=== PATIENT | female | born 1940 | race Caucasian/White ===

== ENCOUNTER 2017-02-08 11:23 | Inpatient (IN) ==
[~2017-02-08 11:23] MED LIST: *HR* FentaNYL (PF) 100 MCG/2 ML VIAL ONE; *HR* Propofol 200 MG/20 ML VIAL IVP ONE; *HR* Succinylcholine 200 MG/10 ML VIAL IVP ONE; Dexamethasone 4 MG/ML VIAL ONE; Lidocaine -MPF 2% 2 ML VIAL ONE; Ondansetron 4 MG/2 ML VIAL ONE
--- NOTE | 2017-02-08 11:54 | Anesthesia Evaluation PreOp ---
Date of Encounter: 02/08/17 Time of Encounter: 11:51 - Past History Planned Operation: PLIF L3-4 Cardiac History: HTN, Hyperlipidemia Pulmonary History: Asthma, COPD (3L O2 nc), TEO Dx [place] History: Other (Depression, Lumbar stenosis, Chronic Back Pain, Diabetic Polyneuropathy) Other Medical History: Renal (CRD Stage IV), Thyroid (Hypothyroid), GERD Anesthesia History: No Prior Anesthetic Complications, Past Anesthesia ( Thyroidectomy, Knee scope, GB, Dx Lap, PLIF) : No Alcohol Use: none Drug use: none Medications and Allergies ALPRAZolam [Xanax 1 MG Tablet] 1 mg PO HS 07/25/16 [History] Albuterol Neb [Proventil Neb] 2.5 mg IH Q6H PRN 07/25/16 [History] Albuterol Sulfate [Proair Hfa] 2 puff IH Q4-6H PRN 07/25/16 [History] Aspirin 81 mg PO DAILY 07/25/16 [History] Atorvastatin Calcium [Lipitor] 20 mg PO HS 07/25/16 [History] Cholecalciferol (Vitamin D3) [Vitamin D3] 5,000 unit PO DAILY 07/25/16 [History] Escitalopram [Lexapro] 20 mg PO DAILY 07/25/16 [History] Furosemide [Lasix] 20 mg PO DAILY PRN 07/25/16 [History] Gabapentin [Neurontin] 600 mg PO TID 07/25/16 [History] HYDROcodone/Acet 7.5/325 mg [[place] 7.5-325 mg] 1 tab PO Q6H PRN 07/25/16 [ History] Levothyroxine [Synthroid] 125 mcg PO SUMOTUWETHFR 07/25/16 [History] Lisinopril [Zestril] 10 mg PO DAILY 07/25/16 [History] Pantoprazole Sodium [Protonix] 40 mg PO DAILY 07/25/16 [History] Potassium Chloride [K-Tab ER] 20 meq PO DAILY 07/25/16 [History] Loperamide [Imodium] 2 mg PO PRN PRN 07/31/16 [History] Fluconazole [Diflucan] 100 mg PO DAILY #7 tablet 08/01/16 [Rx] Phos-NaK [Neutra-Phos] 1 each PO BID PRN 14 Days 08/01/16 [Rx] Allergies acetaminophen [From Percocet] Allergy (Verified 07/25/16 18:34) See Comments bupropion [From Wellbutrin] Allergy (Verified 07/25/16 18:34) See Comments Diclofenac [From Voltaren] Allergy (Verified 07/25/16 18:34) See Comments diphenhydramine [From Benadryl] Allergy (Verified 07/25/16 18:34) Anxiety meclizine Allergy (Verified 07/25/16 18:34) See Comments NSAIDS (Non-Steroidal Anti-Inflamma Allergy (Verified 07/25/16 18:34) See Comments Oxycodone [From Percocet] Allergy (Verified 07/25/16 18:34) See Comments venlafaxine [From Effexor] Allergy (Verified 07/25/16 18:34) See Comments - Meds/Allergy Pre-op Review Medications Reviewed: Yes Allergies Reviewed: Yes Beta Blockers on Current Med List: No Anesthesia Results - Labs Laboratory Tests 01/24/17 01/24/17 01/24/17 08:58 09:00 09:00 WBC 9.6 Hgb 11.5 Hct 37.0 Plt Count 231 INR Sodium 142 Potassium 4.3 Chloride 103 Carbon Dioxide 32 H BUN 22 H Creatinine 1.21 H Hemoglobin A1c 5.2 02/01/17 12:00 WBC Hgb Hct Plt Count INR 1.0 Sodium Potassium Chloride Carbon Dioxide BUN Creatinine Hemoglobin A1c - Imaging EKG: image reviewed (SR) Anesthesia Exam Height: 5'6'' Weight: 260# NPO (# of Hours): > 8 Hrs Pain Scale: 0 Pain Scale Used: Numeric (1 - 10) - HEENT Pupil (Motor): Pupils equal, EOMI Mallampati: II Teeth: Edentulous Denture Type: Upper: Complete, Lower: Complete Oral Opening: Greater than 3 - [place] LOC: Oriented [place] Motor: Normal RUE, Normal LUE, Normal RLE, Normal LLE, Normal Face [place] Sensory: Normal: RUE, LUE, RLE, LLE, Face - Cardiac Rhythm: Regular Murmur: None JVD: No Carotid Bruit: No - Pulmonary Breath Sounds: bilateral Clear Respiratory Effort: Symmetrical Anesthesia Assess/Plan ASA Score: 3 Anesthetic Plan: General Autologous Blood: Yes Monitoring Plan: Standard Monitors Recovery Plan: PACU
[2017-02-08] MEDS ORDERED: CeFAZolin Pre 2,000 MG/100 ML 2,000 MG/100 ML BAG IVPB ONE (11:57)
[2017-02-08] MEDS ORDERED: Ringers Solution, Lactated 1,000 ML IVC SCH ×2 (12:00→18:35)
[2017-02-08] MEDS ORDERED: Albuterol 2.5 MG/3 ML NEBULIZER IH ONE (12:40)
[2017-02-08] MEDS ORDERED: Albuterol 2.5 MG/3 ML NEBULIZER ONE (12:41)
--- NOTE | 2017-02-08 13:02 | History & Physical Report ---
Date of Encounter: 02/08/17 Time of Encounter: 13:01 24 Hour HP Update - Instructions Instructions: If the History and Physical is less than 30 days old and was completed prior to A.M. admission and or procedure and has NOT been updated on calendar day of procedure please complete this update prior to performing procedure. - Update Patient reports changes in Medical Condition: No Changes in examination, assessment, or condition: No Changes in Medication: No Preop tests/diagnostics Reviewed: Yes Pre-Op MRSA Screen: Negative Surgery Remains Indicated: Yes Consent for Planned Operative Procedure(s) Verified: Yes - Pre-Operative Checklist Preoperative Checklist Indicated: No Prophylactic Antibiotic Ordered: Yes Home Medications Include Beta Laura: No Beta Laura Taken Today (Day of Surgery): No Beta Laura Taken Yesterday (Day Prior to Surgery): No Is VTE Prophylaxis Indicated?: Yes
[2017-02-08] MEDS ORDERED: *HR* Remifentanil 2 MG VIAL IVP ONE (13:30)
--- NOTE | 2017-02-08 17:08 | Orthopedic Operative Note ---
Date of procedure: 02/08/17 Pre-op diagnosis: Spondylolisthesis, lumbar stenosis, lumbar radiculopathy, s/p lumbar fusion Post-op diagnosis: same Operation/Findings: Exploration of fusion, removal of hardware, posterior lumbar interbody fusion L3 -4: The patient successfully underwent general endotracheal anesthesia. The patient was given antibiotics prior to the start of the procedure. Compression boots and stockings were used for deep vein thrombosis prophylaxis. A Pisano catheter was placed. Leads for neuro monitoring were placed on the upper and lower extremities. This included the cranium. The neuro monitoring personnel confirmed there were satisfactory readings prior to the start of the procedure. The patient was turned prone on the Benedict table. The back was prepped and draped in the usual sterile fashion. An incision was was marked and centered over the involved L3-L5 levels in the mid line. The incision was deepened through the lumbar fascia. Bovie cautery and Rose elevators were used to reflect the paraspinal musculature at the lateral extent of the L3-L5 transverse processes of the involved L3-L5 levels. Celeste clamps were placed over the L4 and L5 spinous processes. An intraoperative lateral fluoroscopy graft was obtained. A conversation was held between the surgeon and radiologist and both confirmed we had the correct operative levels. We then exposed the hardware at L4-5 which had been previously placed on the left side. We explored the fusion mass at L4-5. There appeared to be an arthrodesis without evidence of pseudarthrosis. We removed pedicle screws at L4 and L5 respectively. We then placed pedicle screws in standard fashion with the aid of fluoroscopy and anatomic landmarks at L3 and L4 on the left.. Briefly a starter awl was used. A gearshift was subsequently used to enter the chief pilot hole via a transpedicular route into the vertebral body. The chief pilot hole was tapped with an undersized instrument, and subsequently two 6.5 x 40 mm pedicle screws were placed on the left side at the indicated L3 and L4 levels. The screws were tested with the aid of the neurologic monitoring staff via pedicle screw stimulation. All reading suggested there was no significant cortical wall breech. The screws were also evaluated fluoro- graphically and appeared to be in satisfactory position. We then turned our attention to the decompression portion of the procedure. We removed the supraspinous and interspinous ligaments and subsequently the insertion of the ligamentum flavum on the undersurface of the proximal L3 lamina was dislodged with a curette. We then removed the ligamentum flavum as well as undercut the L3-L4 facets at this level to decompress the lateral recesses. We also performed a L3 laminectomy. After the decompression which was over and above that which was required to place the interbody graft, the foramen and traversing roots at this L3-L4 level were found to be free and patent. We also took part of the medial facet in order to aid in the decompression. We then protected the neural elements including the thecal sac and traversing nerve root on the left with a dural retractor. We made an annulotomy into the L3-L4 disc space and then removed disc material using Pituitary instruments. We trialed various size grafts after the endplates were prepared for graft insertion. A 10 x 26 enter body graft fit well within the L3-L4 disc space. We obtained some bone from the left posterior superior iliac spine through us a separate incision and combined with this with the bone which we had saved from the laminectomy portion of the procedure. This autograft bone was first placed in the anterior portion of the L3-L4 disc space and additional bone was placed within the interbody graft spacer. We then placed the interbody graft spacer obliquely across the disc space towards the midline while protecting the neural elements with a root retractor. When the graft was found to be in satisfactory position the kennel hand was removed. We then copiously irrigated the wound. We then decorticated the L3 and L4 transverse processes as well as the facet joints of the involved L3-L4 levels to aid in the posterolateral fusion. We placed autograft bone in the lateral gutters over these regions. We then placed rods within the screw heads of the involved L3 and L4 levels and first locked the distal screws and then subsequently locked the proximal screws so as to improve and reduce the spondylolisthesis previously seen. We then closed the wound in layers with 1 Vicryl for the fascia, 2-0 Vicryl. Subcutaneous tissue, and Dermabond was used for skin closure. Sterile dressings were placed over the wound. The patient was turned supine on a hospital bed and extubated. All sponge instruments and needle counts were correct at the end of the procedure. The patient tolerated the procedure well without complications. Anesthesia: GETA Surgeon: Gautam Dominguez Jr Estimated blood loss (cc): 500 Condition: stable Disposition: PACU
[2017-02-08] MEDS: *HR* HYDROmorphone (PF) 1 MG/ML SYRINGE IVP PRN ×4 (17:22→17:47)
[2017-02-08] MEDS ORDERED: *HR* HYDROmorphone (PF) 1 MG/ML SYRINGE IVP PRN (17:39)
[2017-02-08] MEDS ORDERED: Acetaminophen IV 1,000 MG/100 ML INFUS..BTL IVPB ONE (18:00)
--- NOTE | 2017-02-08 18:34 | Anesthesia Evaluation Post Op ---
Date of Encounter: 02/08/17 Time of Encounter: 18:34 - Vital Signs Vital Signs: Vital Signs/O2 Sat, Most Current Temp Pulse Resp BP Pulse Ox 97.2 F L 83 18 112/72 91 02/08/17 18:32 02/08/17 18:32 02/08/17 18:32 02/08/17 18:32 02/08/17 18:32 - Lungs Lungs: Clear Ascult./Percussion - Airway Airway: Non-obstructed - Cardiovascular Regular Rate - Mental Status Mental Status: Alert & Oriented, Answers Appropriately - Pain Pain Scale: 7 Pain Scale used: Numeric (1 - 10) - Nausea Vomiting Nausea Vomiting: Not Present - Hydration Hydration: NPO, Pisano catheter - Discharge PostOp Status: Transfer Patient to floor
[2017-02-08] MEDS ORDERED: Naloxone 0.4 MG/ML INJ IVP PRN (18:35)
[2017-02-08] MEDS ORDERED: Albuterol 2.5 MG/3 ML NEBULIZER IH PRN (18:35)
[2017-02-08] MEDS ORDERED: Ondansetron 4 MG/2 ML VIAL IVP PRN (18:35)
[2017-02-08] MEDS ORDERED: Furosemide 20 MG TABLET PO PRN (18:35)
[2017-02-08] MEDS: *HR* HYDROcodone/Acet 5/325 mg TABLET PO PRN (20:19)
[2017-02-09] MEDS: ceFAZolin 2,000 MG in D5% in Water 100 ML IVPB SCH ×2 (00:33→07:47)
[2017-02-09] MEDS: *HR* Morphine 2 MG/ML SYRINGE IVP PRN ×4 (00:38→21:29)
[2017-02-09] MEDS: *HR* HYDROcodone/Acet 5/325 mg TABLET PO PRN ×5 (04:30→22:36)
[2017-02-09 05:52] LABS: Basophils % 0.1 %; Eosinophils % 0.1 %; Hematocrit 30.9 % (35.3-44.9); Hemoglobin 9.9 g/dL (11.5-15.4); Immature Granulocytes % 0.4 % (0-4); Lymphocytes # 1.9 K/mcL (0.6-4.6); Lymphocytes % 13.5 %; Mean Corpuscular Hemoglobin 30.7 pg (28.0-33.3); Mean Platelet Volume 10.2 fL (9.4-12.4); Monocytes # 1.2 K/mcL (0.0-1.3); Monocytes % 8.4 %; Neutrophils # 10.8 K/mcL (1.6-8.9); Platelet Count 218 K/mcL (140-400); Red Blood Count 3.22 M/mcL (3.82-4.97); Segmented Neutrophils % 77.5 %
[2017-02-09 06:05] LABS: BUN/Creatinine Ratio 26 (6-26); Blood Urea Nitrogen 25 mg/dL (7-20); Calcium 8.7 mg/dL (8.6-10.8); Carbon Dioxide 31 mEq/L (19-29); Chloride 104 mEq/L (98-109); Glucose 94 mg/dL (70-99); Osmolality,Calculated 294 (280-300); Potassium 4.6 mEq/L (3.5-4.5); Sodium 140 mEq/L (136-145); eGFR For African Americans > 60 (> 60); eGFR For Non-African Americans 57 (> 60)
[2017-02-09] MEDS: Cholecalciferol (D-3) 1,000 UNIT TABLET PO SCH (07:47)
[2017-02-09] MEDS: *HR* Glimepiride 2 MG TABLET PO SCH (07:47)
--- NOTE | 2017-02-09 10:20 | Discharge Summary ---
Date of Encounter: 02/09/17 Time of Encounter: 08:00 - Discharge Diagnosis (1) Spondylisthesis Priority: Primary Status: Chronic Qualifiers: Spinal region: unspecified Qualified Code(s): M43.10 - Spondylolisthesis, site unspecified (2) Lumbar stenosis Priority: Primary Status: Chronic (3) Lumbar radiculopathy Priority: Primary Status: Chronic (4) Status post lumbar spinal fusion Priority: Primary Status: Chronic - Discharge Medications Prescriptions: HYDROcodone/Acet 5/325 mg [[place]oyd 5-325 mg] 1 tab PO Q6H PRN #60 tablet PRN Reason: Mild Pain Home Medications: Albuterol Neb [Proventil Neb] 2.5 mg IH Q6H PRN 07/25/16 [History] Albuterol Sulfate [Proair Hfa] 2 puff IH Q4-6H PRN 07/25/16 [History] Cholecalciferol (Vitamin D3) [Vitamin D3] 5,000 unit PO DAILY 07/25/16 [History] Escitalopram [Lexapro] 20 mg PO DAILY 07/25/16 [History] Furosemide [Lasix] 20 mg PO DAILY PRN 07/25/16 [History] Levothyroxine [Synthroid] 125 mcg PO MOTUWETHFRSA 07/25/16 [History] Lisinopril [Zestril] 10 mg PO DAILY 07/25/16 [History] Pantoprazole Sodium [Protonix] 40 mg PO DAILY 07/25/16 [History] Buspirone HCl [Buspar] 7.5 mg PO BID 02/08/17 [History] Glimepiride [Amaryl] 1 mg PO DAILY 02/08/17 [History] HYDROcodone/Acet 5/325 mg [[place] 5-325 mg] 1 tab PO Q6H PRN 02/08/17 [History] HYDROcodone/Acet 5/325 mg [[place] 5-325 mg] 1 tab PO Q6H PRN #60 tablet 02/09/17 [Rx] Allergies/Adverse Reactions: Allergies bupropion [From Wellbutrin] Allergy (Verified 02/08/17 12:58) See Comments PATIENT UNSURE Diclofenac [From Voltaren] Allergy (Verified 02/08/17 12:58) See Comments PATIENT UNSURE meclizine Allergy (Verified 02/08/17 12:58) Dizziness NSAIDS (Non-Steroidal Anti-Inflamma Allergy (Verified 02/08/17 12:58) See Comments LOW KIDNEY FUNCTION Oxycodone [From Percocet] Allergy (Verified 02/08/17 12:58) See Comments MENTAL STATUS CHANGES venlafaxine [From Effexor] Allergy (Verified 02/08/17 12:58) Confusion acetaminophen [From Percocet] Adverse Reaction (Verified 02/08/17 12:58) See Comments MENTAL STATUS CHANGES diphenhydramine [From Benadryl] Adverse Reaction (Verified 02/08/17 12:58) Anxiety Labs on day of discharge: Labs from last 24 hours 02/09/17 02/09/17 02/08/17 05:17 05:17 17:14 WBC 13.9 H RBC 3.22 L Hgb 9.9 L Hct 30.9 L MCV 96.0 MCH 30.7 MCHC 32.0 RDW 15.0 H Plt Count 218 MPV 10.2 Immature Gran % 0.4 Seg Neutrophils % 77.5 Lymphocytes % 13.5 Monocytes % 8.4 Eosinophils % 0.1 Basophils % 0.1 Neutrophils # 10.8 H Lymphocytes # 1.9 Monocytes # 1.2 Eosinophils # 0.0 Basophils # 0.0 Sodium 140 Potassium 4.6 H Chloride 104 Carbon Dioxide 31 H BUN 25 H Creatinine 0.95 Est GFR ( Amer) > 60 Est GFR (Non-Af Amer) 57 L BUN/Creatinine Ratio 26 Glucose 94 POC Glucose 104 H Calculated Osmolality 294 Calcium 8.7 02/08/17 12:23 WBC RBC Hgb Hct MCV MCH MCHC RDW Plt Count MPV Immature Gran % Seg Neutrophils % Lymphocytes % Monocytes % Eosinophils % Basophils % Neutrophils # Lymphocytes # Monocytes # Eosinophils # Basophils # Sodium Potassium Chloride Carbon Dioxide BUN Creatinine Est GFR ( Amer) Est GFR (Non-Af Amer) BUN/Creatinine Ratio Glucose POC Glucose 79 Calculated Osmolality Calcium - Impressions ITS Impressions Lumbar Spine X-Ray 02/08/17 00:00 IMPRESSION: A single postoperative image is obtained. Posterior fusion is noted, likely at L3-4. An intervertebral disc spacer is in place. The lower lumbar spine and lumbosacral junction is obscured. D/ / 02/08/2017 20:31:33 Didier Orlando MD / lilliam Interpreting Provider: Didier Orlando MD Date of admission: 02/08/17 18:29 Primary care physician: Oswaldo Chen DO Consults: 02/08/17 18:35 Consult to Occupational Therapy [CONS] Routine Comment: Evaluate, develop and implement POC Reason for Consult: Postoperative Consult to Physical Therapy [CONS] Routine Comment: Evaluate, develop and implement POC Reason for Consult: Postoperative Consult to Spine Navigator [CONS] [CONS] Routine Discharging clinician: Gautam Dominguez Jr Anticipated date of discharge: 02/09/17 - Patient Status Disposition: Home, Self-Care Condition: Good Functional capacity at discharge: independent ambulation Overall status at discharge: patient is progressing back to baseline - Discharge Instructions Follow Up With: Oswaldo Chen DO [Primary Care Provider] - Ann Gottlieb PAC [Physician Technician Inventory Specialist] - 02/21/17 8:30 am - Diet and Activity Activity: as per physical therapy Diet: advance to your usual diet - Hospital Course Hospital course: Ms. Vela is a 76 year old female status post exploration of fusion, removal of hardware, PLIF L3-4 on 02/08/17. - Time Spent with Patient Total time spent providing and/or coordinating discharge services: - VTE Documentation of Mechanical Device: Intermittent pneumatic compression device
--- NOTE | 2017-02-09 12:16 | Spine Progress Note ---
Date of Encounter: 02/09/17 Time of Encounter: 12:15 Subjective Principal diagnosis: Spondylolisthesis, status post lumbar fusion Interval history: The patient is without complaints. Afebrile vital signs are stable. Incision is clean dry and intact. Neurovascularly intact with regard to bilateral lower extremities. Fires all upper and lower extremity motor groups. Assessment : stable. Plan mobilize ,continue analgesics, discharge planning. Objective Vital signs: Vital Signs Temp Pulse Resp BP Pulse Ox 02/09/17 11:07 98.0 F 82 18 96/60 94 02/09/17 09:30 87 18 92/61 93 02/09/17 06:36 98.0 F 87 18 92/61 93 02/09/17 04:04 98.5 F 58 02/09/17 04:00 98.5 F 88 21 119/65 95 02/08/17 23:05 99.1 F 77 18 144/78 95 02/08/17 22:00 98.9 F 79 16 106/67 93 02/08/17 21:00 98.9 F 77 16 129/75 94 02/08/17 20:00 98.7 F 82 16 123/73 93 02/08/17 19:30 98.6 F 83 14 124/59 93 02/08/17 19:00 98.0 F 83 15 112/64 94 02/08/17 18:32 97.2 F L 83 18 112/72 91 02/08/17 18:22 86 16 110/68 92 02/08/17 18:12 97.8 F 86 18 119/64 92 02/08/17 18:02 88 18 119/78 92 02/08/17 17:52 89 18 125/87 94 02/08/17 17:42 97.6 F 86 18 105/72 93 02/08/17 17:32 86 18 138/58 95 02/08/17 17:22 94 18 139/60 94 02/08/17 17:12 97.7 F 100 16 126/98 100 02/08/17 12:29 98.4 F 75 16 100/62 92 Intake and Output 02/08/17 02/09/17 02/09/17 23:59 07:59 15:59 Intake Total 100 / 100 100 / 100 Output Total 820 / 820 1150 / 1150 Balance -720 / -720 -1050 / -1050 Intake: IV Fluids 100 / 100 100 / 100 Ofirmev 1,000 mg/100 ml 1 100 / 100 ,000 mg In 100 ml @ 400 mls/hr IVPB ONCE ONE Rx#: [id number] Ancef 2,000 MG In 100 / 100 Dextrose 5% 100 ML @ 200 mls/hr IVPB Q8HR [facility] Rx#: [id number] Output: Urine 350 / 350 Urethral (Pisano) 350 / 350 Estimated Blood Loss 500 / 500 Urine Amount (Catheter) 320 / 320 Catheter 800 / 800 Other: Blood Glucose* 104 - Labs CBC & BMP: 02/09/17 05:17 02/09/17 05:17 Labs: Abnormal lab results WBC 13.9 K/mcL (4.3-11.1) H 02/09/17 05:17 RBC 3.22 M/mcL (3.82-4.97) L 02/09/17 05:17 Hgb 9.9 g/dL (11.5-15.4) L 02/09/17 05:17 Hct 30.9 % (35.3-44.9) L 02/09/17 05:17 RDW 15.0 % (11.5-14.5) H 02/09/17 05:17 Neutrophils # 10.8 K/mcL (1.6-8.9) H 02/09/17 05:17 Potassium 4.6 mEq/L (3.5-4.5) H 02/09/17 05:17 Carbon Dioxide 31 mEq/L (19-29) H 02/09/17 05:17 BUN 25 mg/dL (7-20) H 02/09/17 05:17 Est GFR (Non-Af Amer) 57 (> 60) L 02/09/17 05:17 POC Glucose 104 (58-89) H 02/08/17 17:14 Consult Discharge Plan - Plan Referrals: Ann Gottlieb PAC [Physician Candle Molder Machine] - 02/21/17 8:30 am Oswaldo Chen DO [Primary Care Provider] - Prescriptions: HYDROcodone/Acet 5/325 mg [[place] 5-325 mg] 1 tab PO Q6H PRN #60 tablet PRN Reason: Mild Pain
[2017-02-10] MEDS: *HR* Morphine 2 MG/ML SYRINGE IVP PRN (01:17)
[2017-02-10] MEDS: *HR* HYDROcodone/Acet 5/325 mg TABLET PO PRN ×5 (03:08→19:58)
[2017-02-10] MEDS: Ondansetron ODT 4 MG TAB.RAPDIS SL PRN ×2 (08:20→15:40)
[2017-02-10] MEDS: *HR* Glimepiride 2 MG TABLET PO SCH (09:20)
[2017-02-10] MEDS: Cholecalciferol (D-3) 1,000 UNIT TABLET PO SCH (09:20)
--- NOTE | 2017-02-10 15:21 | Spine Progress Note ---
Date of Encounter: 02/10/17 Time of Encounter: 15:21 Subjective Principal diagnosis: Spondylolisthesis, status post lumbar fusion Interval history: The patient is without complaints. Afebrile vital signs are stable. Incision is clean dry and intact. Neurovascularly intact with regard to bilateral lower extremities. Fires all upper and lower extremity motor groups. Assessment : stable. Plan mobilize ,continue analgesics, discharge planning. Currently plan is home with home health. Objective Vital signs: Vital Signs Temp Pulse Resp BP Pulse Ox 02/10/17 10:59 98.1 F 95 18 135/84 96 02/10/17 07:27 98.5 F 83 18 123/72 94 02/10/17 03:45 98.8 F 83 17 121/73 95 02/09/17 23:15 98.8 F 84 18 112/76 92 02/09/17 22:34 98.7 F 97 16 112/68 90 02/09/17 21:34 93 02/09/17 17:51 98.9 F 82 18 121/75 93 Intake and Output 02/09/17 02/10/17 02/10/17 23:59 07:59 15:59 Intake Total 200 / 200 Output Total 440 / 440 250 / 250 Balance -1 / -1 -240 / -240 -250 / -250 Intake: IV Fluids 100 / 100 Oral 100 / 100 Output: Urine 440 / 440 250 / 250 Other: Stool Size Smear Stool Color Brown # Voids 1 # Bowel Movements 1 Weight 118.5 kg Patient Weight 02/10/17 23:59 Weight 118.5 kg - Labs CBC & BMP: 02/09/17 05:17 02/09/17 05:17 Labs: Abnormal lab results WBC 13.9 K/mcL (4.3-11.1) H 02/09/17 05:17 RBC 3.22 M/mcL (3.82-4.97) L 02/09/17 05:17 Hgb 9.9 g/dL (11.5-15.4) L 02/09/17 05:17 Hct 30.9 % (35.3-44.9) L 02/09/17 05:17 RDW 15.0 % (11.5-14.5) H 02/09/17 05:17 Neutrophils # 10.8 K/mcL (1.6-8.9) H 02/09/17 05:17 Potassium 4.6 mEq/L (3.5-4.5) H 02/09/17 05:17 Carbon Dioxide 31 mEq/L (19-29) H 02/09/17 05:17 BUN 25 mg/dL (7-20) H 02/09/17 05:17 Est GFR (Non-Af Amer) 57 (> 60) L 02/09/17 05:17 POC Glucose 104 (58-89) H 02/08/17 17:14 Consult Discharge Plan - Plan Additional Instructions: Discharge Instructions: Lumbar Please call [facility] ([phone]), your Primary Care Physician, or report to the ER if you have any of the following symptoms: Fever greater that 101.5, increased pain/redness/drainage/odor for your incision site or any other concerning symptoms. ACTIVITY * May Shower * No Tub Baths * No lifting greater than 10 pounds * No Smoking * No Swimming * No off Ground Activities (Running, Climbing, Ladders, Horseback Riding) * No Driving * Wear Back Brace when up walking if lumbar fusion done MEDICATIONS: Upon discharge resume your home medications. Take all the medications as prescribed. Take a stool softener if taking narcotic pain medications. Stool softeners are only effective if you drink enough fluids. Drink 6-8 glass of water or fluids a day, unless this is not allowed for another health problem. Despite using stool softeners, if you haven't had a bowel movement in 3 days, please switch to a gentle laxative. Gentle laxatives are sold over the counter. You should have a bowel movement within 24 hours, if not call the office. You will be discharged from the hospital with a prescription for pain medication. You are encouraged to decrease the use of narcotic pain medication as tolerated. Should you require a refill, please call the office. It is best to call 48-72 hours in advance of needing a prescription refill so you don't run out of medication. WOUND CARE: Remove Dressing Tomorrow. Leave incision open to air. Pat dry when you get out of the shower. FOLLOW-UP: Please follow up with your surgeon in the orthopedic clinic in 2 weeks from the day of surgery. References: [employer] ([email or web address]) Referrals: Ann Gottlieb, PAC [Physician Technical Services Librarian] - 02/21/17 8:30 am Oswaldo Chen DO [Primary Care Provider] - Prescriptions: HYDROcodone/Acet 5/325 mg [[place] 5-325 mg] 1 tab PO Q6H PRN #60 tablet PRN Reason: Mild Pain
[2017-02-11] MEDS: *HR* HYDROcodone/Acet 5/325 mg TABLET PO PRN ×4 (00:04→15:37)
[2017-02-11] MEDS: *HR* Morphine 2 MG/ML SYRINGE IVP PRN ×2 (01:12→06:30)
[2017-02-11] MEDS: Cholecalciferol (D-3) 1,000 UNIT TABLET PO SCH (09:37)
[2017-02-11] MEDS: *HR* Glimepiride 2 MG TABLET PO SCH (09:38)
[2017-02-11 15:23] VITALS: BP 161/82
--- NOTE | 2017-02-11 16:50 | Orthopedics Progress Note ---
Date of Encounter: 02/11/17 Time of Encounter: 16:47 - Assessment and Plan (1) Spondylisthesis Current Visit: Yes Status: Chronic Qualifiers: Spinal region: unspecified Qualified Code(s): M43.10 - Spondylolisthesis, site unspecified (2) Status post lumbar spinal fusion Current Visit: Yes Status: Chronic Postoperative day #3, stable Discharge today Subjective Principal diagnosis: Spondylolisthesis, status post lumbar fusion Interval history: The patient is comfortable with pain mainly controlled Back: Wound is clean dry and intact Bilateral calves soft nontender Neurovascular intact distally Lumbar x-rays reviewed showing good position of hardware Objective Vital signs: Vital Signs Temp Pulse Resp BP Pulse Ox 02/11/17 15:21 98.4 F 88 16 161/82 93 02/11/17 11:15 98.2 F 77 16 123/72 95 02/11/17 06:25 98.5 F 92 16 128/76 96 02/11/17 04:00 98.3 F 97 15 121/82 96 02/11/17 00:29 98.2 F 88 18 116/73 94 02/10/17 19:57 98.5 F 91 16 115/70 94 Intake and Output 02/11/17 02/11/17 02/11/17 07:59 15:59 23:59 Intake Total 360 / 360 Output Total 300 / 300 Balance 60 / 60 Intake: Oral 360 / 360 Output: Urine 300 / 300 Other: Meal Lunch Percent of Meal Consumed 50% Blood Glucose* 65 98 Incision: clean and dry - Labs CBC & BMP: 02/09/17 05:17 02/09/17 05:17 Labs: Abnormal lab results WBC 13.9 K/mcL (4.3-11.1) H 02/09/17 05:17 RBC 3.22 M/mcL (3.82-4.97) L 02/09/17 05:17 Hgb 9.9 g/dL (11.5-15.4) L 02/09/17 05:17 Hct 30.9 % (35.3-44.9) L 02/09/17 05:17 RDW 15.0 % (11.5-14.5) H 02/09/17 05:17 Neutrophils # 10.8 K/mcL (1.6-8.9) H 06/01/17 05:17 Potassium 4.6 mEq/L (3.5-4.5) H 02/09/17 05:17 Carbon Dioxide 31 mEq/L (19-29) H 02/09/17 05:17 BUN 25 mg/dL (7-20) H 02/09/17 05:17 Est GFR (Non-Af Amer) 57 (> 60) L 02/09/17 05:17 - VTE Documentation of Mechanical Device: Intermittent pneumatic compression device Consult Discharge Plan - Plan Additional Instructions: Discharge Instructions: Lumbar Please call [facility] ([phone]), your Primary Care Physician, or report to the ER if you have any of the following symptoms: Fever greater that 101.5, increased pain/redness/drainage/odor for your incision site or any other concerning symptoms. ACTIVITY * May Shower * No Tub Baths * No lifting greater than 10 pounds * No Smoking * No Swimming * No off Ground Activities (Running, Climbing, Ladders, Horseback Riding) * No Driving * Wear Back Brace when up walking if lumbar fusion done MEDICATIONS: Upon discharge resume your home medications. Take all the medications as prescribed. Take a stool softener if taking narcotic pain medications. Stool softeners are only effective if you drink enough fluids. Drink 6-8 glass of water or fluids a day, unless this is not allowed for another health problem. Despite using stool softeners, if you haven't had a bowel movement in 3 days, please switch to a gentle laxative. Gentle laxatives are sold over the counter. You should have a bowel movement within 24 hours, if not call the office. You will be discharged from the hospital with a prescription for pain medication. You are encouraged to decrease the use of narcotic pain medication as tolerated. Should you require a refill, please call the office. It is best to call 48-72 hours in advance of needing a prescription refill so you don't run out of medication. WOUND CARE: Remove Dressing Tomorrow. Leave incision open to air. Pat dry when you get out of the shower. FOLLOW-UP: Please follow up with your surgeon in the orthopedic clinic in 2 weeks from the day of surgery. References: [employer] ([email or web address]) Referrals: Ann Gottlieb PAC [Physician Biometric Fingerprinting Technician] - 02/21/17 8:30 am Oswaldo Chen DO [Primary Care Provider] - Prescriptions: HYDROcodone/Acet 5/325 mg [[place] 5-325 mg] 1 tab PO Q6H PRN #60 tablet PRN Reason: Mild Pain
== END 2017-02-11 17:15 | disposition home or self-care (01) | DRG 460 ==
LOC: SAMDAY 11:23 → 3NENU 18:29
PROVIDERS: ADMIT Orthopaedic Surgery Orthopaedic Surgery of the Spine; ATTEND Orthopaedic Surgery Orthopaedic Surgery of the Spine

== ENCOUNTER 2017-12-25 19:38 | Inpatient (IN) ==
[2017-12-25 20:16] LABS: Amphetamine Screen,Urine Negative ng/mL (Cutoff=1000); Barbiturate Screen,Urine Negative ng/mL (Cutoff=200); Benzodiazepines Screen,Urine Negative ng/mL (Cutoff=200); Cannabinoid Screen,Urine Negative ng/mL (Cutoff = 50); Cocaine Screen,Urine Negative ng/mL (Cutoff= 300); Opiate Screen,Urine Negative ng/mL (Cutoff=300); Phencyclidine Screen,Urine Negative ng/mL (Cutoff=25)
[2017-12-25 20:26] LABS: Basophils # 0.1 K/mcL (0.0-0.2); Basophils % 0.4 %; Eosinophils # 0.1 K/mcL (0.0-0.6); Eosinophils % 0.7 %; Hematocrit 39.3 % (35.3-44.9); Immature Granulocytes % 0.6 % (0-4); Lymphocytes # 2.1 K/mcL (0.6-4.6); Lymphocytes % 14.7 %; Mean Corpuscular HGB Conc 30.5 g/dL (31.6-35.5); Mean Corpuscular Hemoglobin 29.7 pg (28.0-33.3); Mean Corpuscular Volume 97.3 fL (83.0-100.0); Mean Platelet Volume 9.9 fL (9.4-12.4); Monocytes # 1.1 K/mcL (0.0-1.3); Monocytes % 7.9 %; Neutrophils # 10.8 K/mcL (1.6-8.9); Platelet Count 286 K/mcL (140-400); Red Blood Count 4.04 M/mcL (3.82-4.97); Red Cell Distribution Width 14.9 % (11.5-14.5); Segmented Neutrophils % 75.7 %
[2017-12-25 20:27] LABS: Bilirubin,Urine Negative (Negative); Blood,Urine Small (Negative); Clarity,Urine Slightly Cloudy (Clear); Color,Urine Yellow (Yellow); Glucose,Urine (UA) Normal (Normal); Ketones,Urine Negative (Negative); Leukocyte Esterase,Urine Large (Negative); Nitrite,Urine Negative (Negative); PH,Urine 5.5 pH Units (5.0-8.0); Protein,Urine 30 mg/dL (Neg-Trace); Urobilinogen,Urine Normal (Normal)
[2017-12-25 20:32] LABS: RBC,Urine 0-3 per hpf (0-3)
[2017-12-25 20:32] LABS: Prothrombin Time 10.4 Seconds (9.4-12.1)
[2017-12-25 20:33] LABS: Bacteria,Urine Many per hpf (None-Few); Squamous Epithelial Cell,Urine Many per lpf (None-Few)
[2017-12-25 20:35] LABS: Activated Partial Thrombo Time 28.7 Seconds (26.0-36.0)
[2017-12-25 20:50] LABS: Alanine Aminotransferase 12 Units/L (7-52); Albumin 4.3 g/dL (3.5-5.7); Albumin/Globulin Ratio 1.7 (1.1-2.2); Alkaline Phosphatase 120 Units/L (34-104); Aspartate Amino Transferase 15 Units/L (13-39); BUN/Creatinine Ratio 21 (6-26); Bilirubin,Direct 0.1 mg/dL (0.0-0.2); Bilirubin,Indirect 0.2 mg/dL (0.0-1.2); Bilirubin,Total 0.3 mg/dL (0.3-1.0); Blood Urea Nitrogen 32 mg/dL (8-23); Calcium 8.3 mg/dL (8.6-10.3); Carbon Dioxide 28 mEq/L (23-29); Chloride 105 mEq/L (98-107); Globulin 2.5 g/dL (2.4-3.5); Glucose 122 mg/dL (70-105); Osmolality,Calculated 294 (280-300); Potassium 5.3 mEq/L (3.5-5.1); Sodium 138 mEq/L (136-145); Total Protein 6.8 g/dL (6.4-8.9); Troponin I < 0.03 ng/mL (< 0.04); eGFR For African Americans 40 (> 60); eGFR For Non-African Americans 33 (> 60)
[2017-12-25 21:02] LABS: ABG Base Excess -1 mEq/L (-2 to 3); ABG HCO3 28 mEq/L (21-27); ABG Oxygen Saturation 94 % (95-98); ABG PCO2 71 mmHg (35-45); ABG PH 7.21 pH Units (7.32-7.45); ABG PO2 89 mmHg (85-104); ABG TCO2 31 mEq/L (20-26)
[2017-12-25] MEDS ORDERED: Levofloxacin 500 MG/100 ML 500 MG/100 ML BAG IVPB ONE (21:45)
[2017-12-25] MEDS ORDERED: 0.9 % Sodium Chloride 1,000 ML IVC ONE (21:46)
--- NOTE | 2017-12-25 22:17 | Emergency Department Note ---
Disposition Clinical Impression: Acute exacerbation of chronic obstructive airways disease, CO2 retention, Renal insufficiency, Obstructive sleep apnea Disposition: Admitted As Inpatient Condition: Fair Time of Disposition: 22:20 General Adult HPI - General Chief complaint: ED Shortness of Breath/Dyspnea Stated complaint: Confusion, SOB Time Seen by Provider: 12/25/17 19:43 Source: patient, EMS Mode of arrival: EMS Limitations: no limitations Nursing Notes Reviewed: Yes Vital Signs Reviewed: Yes - History of Present Illness HPI Narrative: 77-year-old female presents emergency room for altered mental status and shortness of breath. Patient has a history of obstructive sleep apnea, COPD, polysubstance abuse, respiratory failure. She presents today for confusion associated with shortness of breath. Patient was brought in via EMS. Patient can tell me her name and where she is at. She contaminated year. She denies any pain anywhere. States she does feels extremely tired. She was out visiting a family member today at the hospital and was not wearing her oxygen. She does wear chronic home O2. She does again have a history of COPD. She was not wearing her oxygen all day today and became very sleepy and tired. She denies chest pain. No recent fevers. Pain Scale: 0 - Related Data Home Medications Medication Instructions Recorded Confirmed Albuterol Neb [Proventil Neb] 2.5 mg IH Q6H PRN 07/25/16 12/25/17 Cholecalciferol (Vitamin D3) 5,000 unit PO DAILY 07/25/16 12/25/17 [Vitamin D3] Escitalopram [Lexapro] 20 mg PO DAILY 07/25/16 12/25/17 Furosemide [Lasix] 20 mg PO DAILY PRN 07/25/16 12/25/17 Levothyroxine [Synthroid] 125 mcg PO MOTUWETHFRSA 07/25/16 12/25/17 Lisinopril [Zestril] 10 mg PO DAILY 07/25/16 12/25/17 Pantoprazole Sodium [Protonix] 40 mg PO DAILY 07/25/16 12/25/17 Buspirone HCl [Buspar] 7.5 mg PO BID 02/08/17 12/25/17 Glimepiride [Amaryl] 1 mg PO BID 02/08/17 12/25/17 Gabapentin [Neurontin] 600 mg PO TID 02/13/17 12/25/17 ARIPiprazole [Abilify] 2 mg PO DAILY 12/25/17 12/25/17 Albuterol Sulfate [Proair Hfa] 1 - 2 puff IH Q4-6H PRN 12/25/17 12/25/17 Alendronate Sodium [Fosamax] 70 mg PO QWEEK 12/25/17 12/25/17 Atorvastatin Calcium [Lipitor] 20 mg PO HS 12/25/17 12/25/17 Calcitriol [Rocaltrol] 0.25 mcg PO MOWEFR 12/25/17 12/25/17 Cyclobenzaprine HCl 2.5 - 5 mg PO HS PRN 12/25/17 12/25/17 Oxygen 2 l IH AD 12/25/17 12/25/17 traZODone [TraZODone] 50 mg PO HS 12/25/17 12/25/17 Allergies Allergy/AdvReac Type Severity Reaction Status Date / Time bupropion [From Wellbutrin] Allergy See Verified 05/07/17 14:16 Comments Diclofenac [From Voltaren] Allergy See Verified 05/07/17 14:16 Comments meclizine Allergy Dizziness Verified 05/07/17 14:16 NSAIDS (Non-Steroidal Allergy See Verified 05/07/17 14:16 Anti-Inflamma Comments Oxycodone [From Percocet] Allergy See Verified 05/07/17 14:16 Comments venlafaxine [From Effexor] Allergy Confusion Verified 05/07/17 14:16 diphenhydramine AdvReac Anxiety Verified 05/07/17 14:16 [From Benadryl] All systems ED: reviewed and negative except as stated. Constitutional: Reports: weakness. Denies: fever, chills Eyes: Reports: as per HPI ENT ED: Reports: as per HPI Cardiovascular: Denies: chest pain, palpitations Respiratory: Reports: as per HPI Gastrointestinal: Reports: as per HPI Genitourinary: Reports: as per HPI Musculoskeletal: Reports: as per HPI Integumentary: Reports: as per HPI Neurological: Reports: as per HPI, headache, weakness Psychiatric: Reports: as per HPI Endocrine: Reports: as per HPI Hematological/Lymphatic: Reports: as per HPI Allergic/Immunologic: Reports: as per HPI Past Medical History - Past Medical History Medical history: Reports: arthritis, asthma, COPD, diabetes, GERD, hyperlipidemia, hypertension, liver disease, osteoporosis, renal disease, thyroid disease, other Surgical history: Reports: appendectomy, cholecystectomy, knee replacement, orthopedic, other, thyroidectomy, other, vascular surgery, LE vascular intervention, arthroscopy Psychiatric history: Reports: anxiety, depression MATERIAL INSPECTOR history: Reports: no MATERIAL INSPECTOR history - Social History Smoking Status: Former smoker Smokeless Tobacco Status: No Alcohol use: Reports: none Drug use: Reports: none Physical Exam Patient is very somnolent. Answers questions but falls back asleep quickly - General General appearance: alert, in no apparent distress - Head Head exam: atraumatic, normocephalic - Eye Eye exam: Present: normal appearance - ENT ENT exam: normal exam - Neck Neck exam: Present: normal inspection - Chest Chest inspection: Present: normal inspection - Respiratory Respiratory exam: Present: normal lung sounds bilaterally - Cardiovascular Cardiovascular exam: Present: regular rate, normal rhythm - Abdominal Exam Abdominal exam: Present: soft, Non-Tender - Extremities Exam Extremities exam: Present: normal inspection - Expanded Lower Extremity Exam Hip/Pelvis exam: Present: normal inspection - Neurological Exam Neurological exam: Present: oriented X3. Absent: motor sensory deficit - Psychiatric Psychiatric exam: Present: other (Sleepy) - Skin Skin exam: Present: warm, dry, intact Course Vital Signs Temperature 98.8 F 12/25/17 19:45 Pulse Rate 77 12/25/17 19:45 Respiratory Rate 16 12/25/17 19:45 Blood Pressure 125/90 12/25/17 19:45 O2 Sat by Pulse Oximetry 96 12/25/17 19:45 Temperature 98.8 F 12/25/17 19:45 Pulse Rate 80 12/25/17 22:25 Respiratory Rate 13 12/26/17 00:01 Blood Pressure 112/87 12/26/17 00:01 O2 Sat by Pulse Oximetry 96 12/25/17 23:35 Oxygen Delivery Oxygen Delivery Bipap Medical Decision Making - MDM Narrative Medical decision making narrative: Patient was thought to be in CO2 retention. Noted her BiPAP after we got her ABG results back. ABG showed a gases 7.2 with a CO2 and this 71 range. Workup here otherwise was unremarkable including a chest x-ray, CT of the head and screening lab work as well as a drug urine screen. Her EKG did not show any significant findings. I suspect this is all secondary to acute CO2 retention. This could be from her not wearing her oxygen all day versus overdose of her Neurontin. Spoke with the hospitalist. They will admit the patient if her ABG is improving. They are limited on beds at this time. We are doing a third ABG at this point. She is doing much better as far as her mentation. She is able to talk through the mask and carry a conversation. She is alert she is oriented. She is in no respiratory distress at this time. Medical care time of 60 minutes spent in medical management of acute CO2 retention - Medical Records Medical records reviewed: Yes I reviewed the patient's medical records. - Lab Data Lab results reviewed: Yes I reviewed the patient's lab results. Result diagrams: 12/25/17 20:14 12/25/17 20:14 Lab Results 12/25/17 12/25/17 12/25/17 Range/Units 19:48 20:01 20:14 WBC 14.3 H (4.3-11.1) K/mcL RBC 4.04 (3.82-4.97) M/mcL Hgb 12.0 (11.5-15.4) g/dL Hct 39.3 (35.3-44.9) % MCV 97.3 (83.0-100.0) fL MCH 29.7 (28.0-33.3) pg MCHC 30.5 L (31.6-35.5) g/dL RDW 14.9 H (11.5-14.5) % Plt Count 286 (140-400) K/mcL MPV 9.9 (9.4-12.4) fL Immature Gran % 0.6 (0-4) % Seg Neutrophils % 75.7 % Lymphocytes % 14.7 % Monocytes % 7.9 % Eosinophils % 0.7 % Basophils % 0.4 % Neutrophils # 10.8 H (1.6-8.9) K/mcL Lymphocytes # 2.1 (0.6-4.6) K/mcL Monocytes # 1.1 (0.0-1.3) K/mcL Eosinophils # 0.1 (0.0-0.6) K/mcL Basophils # 0.1 (0.0-0.2) K/mcL PT (9.4-12.1) Seconds INR APTT (26.0-36.0) Seconds Sample Site ABG pH (7.32-7.45) pH Units ABG pCO2 (35-45) mmHg ABG pO2 (85-104) mmHg ABG HCO3 (21-27) mEq/L ABG Total CO2 (20-26) mEq/L ABG O2 Saturation (95-98) % ABG Base Excess (-2 to 3) mEq/L Tristin Test Carboxyhemoglobin (0-5) % O2 Delivery Device Inspired O2 (1-15=lpm ak84-158=%) PEEP cm H2O Pressure Support cm H2O Sodium (136-145) mEq/L Potassium (3.5-5.1) mEq/L Chloride (98-107) mEq/L Carbon Dioxide (23-29) mEq/L BUN (8-23) mg/dL Creatinine (0.60-1.20) mg/dL Est GFR ( Amer) (> 60) Est GFR (Non-Af Amer) (> 60) BUN/Creatinine Ratio (6-26) Glucose (70-105) mg/dL Calculated Osmolality (280-300) Lactic Acid (0.5-2.2) mmol/L Calcium (8.6-10.3) mg/dL Total Bilirubin (0.3-1.0) mg/dL Direct Bilirubin (0.0-0.2) mg/dL Indirect Bilirubin (0.0-1.2) mg/dL AST (13-39) Units/L ALT (7-52) Units/L Alkaline Phosphatase (34-104) Units/L Troponin I (< 0.04) ng/mL B-Natriuretic Peptide (Less than 100) pg/mL Serum Total Protein (6.4-8.9) g/dL Albumin (3.5-5.7) g/dL Globulin (2.4-3.5) g/dL Albumin/Globulin Ratio (1.1-2.2) Urine Color Yellow (Yellow) Urine Clarity Slightly Cloudy A (Clear) Urine pH 5.5 (5.0-8.0) pH Units Ur Specific [place] 1.020 (1.010-1.025) Urine Protein 30 H (Neg-Trace) mg/dL Urine Glucose (UA) Normal (Normal) mg/dL Urine Ketones Negative (Negative) mg/dL Urine Blood Small H (Negative) Urine Nitrite Negative (Negative) Urine Bilirubin Negative (Negative) Urine Urobilinogen Normal (Normal) mg/dL Ur Leukocyte Esterase Large H (Negative) Urine Microscopic RBC 0-3 (0-3) per hpf Urine Microscopic WBC 5-15 H (0-3) per hpf Ur Squamous Epith Cells Many H (None-Few) per lpf Urine Bacteria Many H (None-Few) per hpf Ur Culture Indicated? NO. (NO) Urine Opiates Screen Negative (Uduwvm=602) ng/mL Ur Barbiturates Screen Negative (Dssohd=245) ng/mL Ur Phencyclidine Scrn Negative (Cutoff=25) ng/mL Ur Amphetamines Screen Negative (Xirozk=9651) ng/mL U Benzodiazepines Scrn Negative (Rehdxv=869) ng/mL Urine Cocaine Screen Negative (Cutoff= 300) ng/mL U Marijuana (THC) Screen Negative (Cutoff = 50) ng/mL 12/25/17 12/25/17 12/25/17 Range/Units 20:14 20:14 20:14 WBC (4.3-11.1) K/mcL RBC (3.82-4.97) M/mcL Hgb (11.5-15.4) g/dL Hct (35.3-44.9) % MCV (83.0-100.0) fL MCH (28.0-33.3) pg MCHC (31.6-35.5) g/dL RDW (11.5-14.5) % Plt Count (140-400) K/mcL MPV (9.4-12.4) fL Immature Gran % (0-4) % Seg Neutrophils % % Lymphocytes % % Monocytes % % Eosinophils % % Basophils % % Neutrophils # (1.6-8.9) K/mcL Lymphocytes # (0.6-4.6) K/mcL Monocytes # (0.0-1.3) K/mcL Eosinophils # (0.0-0.6) K/mcL Basophils # (0.0-0.2) K/mcL PT 10.4 (9.4-12.1) Seconds INR 1.0 APTT 28.7 (26.0-36.0) Seconds Sample Site ABG pH (7.32-7.45) pH Units ABG pCO2 (35-45) mmHg ABG pO2 (85-104) mmHg ABG HCO3 (21-27) mEq/L ABG Total CO2 (20-26) mEq/L ABG O2 Saturation (95-98) % ABG Base Excess (-2 to 3) mEq/L Tristin Test Carboxyhemoglobin (0-5) % O2 Delivery Device Inspired O2 (1-15=lpm qc00-173=%) PEEP cm H2O Pressure Support cm H2O Sodium 138 (136-145) mEq/L Potassium 5.3 H (3.5-5.1) mEq/L Chloride 105 (98-107) mEq/L Carbon Dioxide 28 (23-29) mEq/L BUN 32 H (8-23) mg/dL Creatinine 1.54 H (0.60-1.20) mg/dL Est GFR ( Amer) 40 L (> 60) Est GFR (Non-Af Amer) 33 L (> 60) BUN/Creatinine Ratio 21 (6-26) Glucose 122 H (70-105) mg/dL Calculated Osmolality 294 (280-300) Lactic Acid 0.6 (0.5-2.2) mmol/L Calcium 8.3 L (8.6-10.3) mg/dL Total Bilirubin 0.3 (0.3-1.0) mg/dL Direct Bilirubin 0.1 (0.0-0.2) mg/dL Indirect Bilirubin 0.2 (0.0-1.2) mg/dL AST 15 (13-39) Units/L ALT 12 (7-52) Units/L Alkaline Phosphatase 120 H (34-104) Units/L Troponin I < 0.03 (< 0.04) ng/mL B-Natriuretic Peptide (Less than 100) pg/mL Serum Total Protein 6.8 (6.4-8.9) g/dL Albumin 4.3 (3.5-5.7) g/dL Globulin 2.5 (2.4-3.5) g/dL Albumin/Globulin Ratio 1.7 (1.1-2.2) Urine Color (Yellow) Urine Clarity (Clear) Urine pH (5.0-8.0) pH Units Ur Specific [place] (1.010-1.025) Urine Protein (Neg-Trace) mg/dL Urine Glucose (UA) (Normal) mg/dL Urine Ketones (Negative) mg/dL Urine Blood (Negative) Urine Nitrite (Negative) Urine Bilirubin (Negative) Urine Urobilinogen (Normal) mg/dL Ur Leukocyte Esterase (Negative) Urine Microscopic RBC (0-3) per hpf Urine Microscopic WBC (0-3) per hpf Ur Squamous Epith Cells (None-Few) per lpf Urine Bacteria (None-Few) per hpf Ur Culture Indicated? (NO) Urine Opiates Screen (Mxjhqj=426) ng/mL Ur Barbiturates Screen (Fabfav=548) ng/mL Ur Phencyclidine Scrn (Cutoff=25) ng/mL Ur Amphetamines Screen (Jtoiaw=1799) ng/mL U Benzodiazepines Scrn (Lilrct=271) ng/mL Urine Cocaine Screen (Cutoff= 300) ng/mL U Marijuana (THC) Screen (Cutoff = 50) ng/mL 12/25/17 12/25/17 12/25/17 Range/Units 20:14 20:14 20:53 WBC (4.3-11.1) K/mcL RBC (3.82-4.97) M/mcL Hgb (11.5-15.4) g/dL Hct (35.3-44.9) % MCV (83.0-100.0) fL MCH (28.0-33.3) pg MCHC (31.6-35.5) g/dL RDW (11.5-14.5) % Plt Count (140-400) K/mcL MPV (9.4-12.4) fL Immature Gran % (0-4) % Seg Neutrophils % % Lymphocytes % % Monocytes % % Eosinophils % % Basophils % % Neutrophils # (1.6-8.9) K/mcL Lymphocytes # (0.6-4.6) K/mcL Monocytes # (0.0-1.3) K/mcL Eosinophils # (0.0-0.6) K/mcL Basophils # (0.0-0.2) K/mcL PT (9.4-12.1) Seconds INR APTT (26.0-36.0) Seconds Sample Site R Radial ABG pH 7.21 L (7.32-7.45) pH Units ABG pCO2 71 H* (35-45) mmHg ABG pO2 89 (85-104) mmHg ABG HCO3 28 H (21-27) mEq/L ABG Total CO2 31 H (20-26) mEq/L ABG O2 Saturation 94 L (95-98) % ABG Base Excess -1 (-2 to 3) mEq/L Tristin Test Positive Carboxyhemoglobin 6.7 H (0-5) % O2 Delivery Device Oxy Mask Inspired O2 28.0 (1-15=lpm et41-520=%) PEEP cm H2O Pressure Support cm H2O Sodium (136-145) mEq/L Potassium (3.5-5.1) mEq/L Chloride (98-107) mEq/L Carbon Dioxide (23-29) mEq/L BUN (8-23) mg/dL Creatinine (0.60-1.20) mg/dL Est GFR ( Amer) (> 60) Est GFR (Non-Af Amer) (> 60) BUN/Creatinine Ratio (6-26) Glucose (70-105) mg/dL Calculated Osmolality (280-300) Lactic Acid (0.5-2.2) mmol/L Calcium (8.6-10.3) mg/dL Total Bilirubin (0.3-1.0) mg/dL Direct Bilirubin (0.0-0.2) mg/dL Indirect Bilirubin (0.0-1.2) mg/dL AST (13-39) Units/L ALT (7-52) Units/L Alkaline Phosphatase (34-104) Units/L Troponin I (< 0.04) ng/mL B-Natriuretic Peptide 52 (Less than 100) pg/mL Serum Total Protein (6.4-8.9) g/dL Albumin (3.5-5.7) g/dL Globulin (2.4-3.5) g/dL Albumin/Globulin Ratio (1.1-2.2) Urine Color (Yellow) Urine Clarity (Clear) Urine pH (5.0-8.0) pH Units Ur Specific [place] (1.010-1.025) Urine Protein (Neg-Trace) mg/dL Urine Glucose (UA) (Normal) mg/dL Urine Ketones (Negative) mg/dL Urine Blood (Negative) Urine Nitrite (Negative) Urine Bilirubin (Negative) Urine Urobilinogen (Normal) mg/dL Ur Leukocyte Esterase (Negative) Urine Microscopic RBC (0-3) per hpf Urine Microscopic WBC (0-3) per hpf Ur Squamous Epith Cells (None-Few) per lpf Urine Bacteria (None-Few) per hpf Ur Culture Indicated? (NO) Urine Opiates Screen (Mshqgo=745) ng/mL Ur Barbiturates Screen (Pgxoad=255) ng/mL Ur Phencyclidine Scrn (Cutoff=25) ng/mL Ur Amphetamines Screen (Qehcwu=0800) ng/mL U Benzodiazepines Scrn (Sqvmiv=394) ng/mL Urine Cocaine Screen (Cutoff= 300) ng/mL U Marijuana (THC) Screen (Cutoff = 50) ng/mL 12/25/17 Range/Units 22:35 WBC (4.3-11.1) K/mcL RBC (3.82-4.97) M/mcL Hgb (11.5-15.4) g/dL Hct (35.3-44.9) % MCV (83.0-100.0) fL MCH (28.0-33.3) pg MCHC (31.6-35.5) g/dL RDW (11.5-14.5) % Plt Count (140-400) K/mcL MPV (9.4-12.4) fL Immature Gran % (0-4) % Seg Neutrophils % % Lymphocytes % % Monocytes % % Eosinophils % % Basophils % % Neutrophils # (1.6-8.9) K/mcL Lymphocytes # (0.6-4.6) K/mcL Monocytes # (0.0-1.3) K/mcL Eosinophils # (0.0-0.6) K/mcL Basophils # (0.0-0.2) K/mcL PT (9.4-12.1) Seconds INR APTT (26.0-36.0) Seconds Sample Site R Radial ABG pH 7.22 L (7.32-7.45) pH Units ABG pCO2 71 H* (35-45) mmHg ABG pO2 84 L (85-104) mmHg ABG HCO3 29 H (21-27) mEq/L ABG Total CO2 31 H (20-26) mEq/L ABG O2 Saturation 93 L (95-98) % ABG Base Excess -1 (-2 to 3) mEq/L Tristin Test Positive Carboxyhemoglobin (0-5) % O2 Delivery Device BiPAP Inspired O2 30.0 (1-15=lpm ga58-567=%) PEEP 7 cm H2O Pressure Support 7 cm H2O Sodium (136-145) mEq/L Potassium (3.5-5.1) mEq/L Chloride (98-107) mEq/L Carbon Dioxide (23-29) mEq/L BUN (8-23) mg/dL Creatinine (0.60-1.20) mg/dL Est GFR ( Amer) (> 60) Est GFR (Non-Af Amer) (> 60) BUN/Creatinine Ratio (6-26) Glucose (70-105) mg/dL Calculated Osmolality (280-300) Lactic Acid (0.5-2.2) mmol/L Calcium (8.6-10.3) mg/dL Total Bilirubin (0.3-1.0) mg/dL Direct Bilirubin (0.0-0.2) mg/dL Indirect Bilirubin (0.0-1.2) mg/dL AST (13-39) Units/L ALT (7-52) Units/L Alkaline Phosphatase (34-104) Units/L Troponin I (< 0.04) ng/mL B-Natriuretic Peptide (Less than 100) pg/mL Serum Total Protein (6.4-8.9) g/dL Albumin (3.5-5.7) g/dL Globulin (2.4-3.5) g/dL Albumin/Globulin Ratio (1.1-2.2) Urine Color (Yellow) Urine Clarity (Clear) Urine pH (5.0-8.0) pH Units Ur Specific [place] (1.010-1.025) Urine Protein (Neg-Trace) mg/dL Urine Glucose (UA) (Normal) mg/dL Urine Ketones (Negative) mg/dL Urine Blood (Negative) Urine Nitrite (Negative) Urine Bilirubin (Negative) Urine Urobilinogen (Normal) mg/dL Ur Leukocyte Esterase (Negative) Urine Microscopic RBC (0-3) per hpf Urine Microscopic WBC (0-3) per hpf Ur Squamous Epith Cells (None-Few) per lpf Urine Bacteria (None-Few) per hpf Ur Culture Indicated? (NO) Urine Opiates Screen (Cppyxn=725) ng/mL Ur Barbiturates Screen (Rsjwnx=502) ng/mL Ur Phencyclidine Scrn (Cutoff=25) ng/mL Ur Amphetamines Screen (Vdnpiz=3612) ng/mL U Benzodiazepines Scrn (Jueixr=213) ng/mL Urine Cocaine Screen (Cutoff= 300) ng/mL U Marijuana (THC) Screen (Cutoff = 50) ng/mL - Radiology Data Radiology results reviewed: Yes I reviewed the patient's radiology results. - EKG Data EKG #1 EKG attestation: Yes I reviewed and interpreted this EKG. EKG results narrative: EKG shows a rate of 77. Normal sinus rhythm. Normal axis. All intervals are normal.
[2017-12-25 22:47] LABS: ABG Base Excess -1 mEq/L (-2 to 3); ABG HCO3 29 mEq/L (21-27); ABG Oxygen Saturation 93 % (95-98); ABG PCO2 71 mmHg (35-45); ABG PH 7.22 pH Units (7.32-7.45); ABG PO2 84 mmHg (85-104); ABG TCO2 31 mEq/L (20-26); Blood Gas PEEP 7 cm H2O; Blood Gas Pressure Support 7 cm H2O
[2017-12-25] MEDS ORDERED: Furosemide 20 MG TABLET PO PRN (23:13)
[2017-12-25] MEDS ORDERED: Naloxone 0.4 MG/ML INJ IVP PRN (23:14)
[2017-12-25] MEDS ORDERED: *HR* Dextrose 50 % in Water (Syg) 50 ML SYRINGE IVP PRN (23:19)
[2017-12-25] MEDS ORDERED: D5% in Water 1,000 ML IVC PRN (23:19)
[2017-12-25] MEDS ORDERED: Dextrose Gel 15 GM/37.5 ML TUBE PO PRN ×2 (23:19)
--- NOTE | 2017-12-25 23:30 | Internal Med History&Physical ---
Date of Encounter: 12/25/17 Time of Encounter: 23:26 Internal Medicine - H&P: HPI Chief complaint: Altered mental status/shortness of breath Admitted From: Emergency Dept Plans for Post Hospital Care: Home History of present illness: Ms. Vela is a 77 year old female who is a background medical history of hypertension, hyperlipidemia, diabetes mellitus, and GERD, chronic kidney disease, hypothyroidism, advance COPD, obstructive sleep apnea. Patient was in this hospital for an entire day as her daughter was undergoing surgery. Patient was very stressed out for the activity for the entire day. She did not use her oxygen. She went home and apparently as per patient's daughter who is also in a healthcare tells us that patient took multiple tablets of gabapentin as she was in pain. Patient was started feeling drowsy she was more sleepy and she was altered and that was the reason patient was brought to the emergency room for further evaluation. Workup in the emergency room: Patient was evaluated in the emergency room. Basic labs were drawn. ABG was done. Chest x-ray was suggestive of no acute cardiopulmonary process. Noted that patient has a elevated white blood cell count. Noted that patient has a respiratory acidosis with elevated PCO2 which is consistent with COPD exacerbation. Reason for admission: Acute respiratory failure in a patient who has underlying COPD/obstructive sleep apnea. Likely etiology for this is underlying infection. Family history: noncontributory Past Med Surg Social Fam HX - Past Medical History Medical history: arthritis, asthma, COPD, diabetes, GERD, hyperlipidemia, hypertension, liver disease, osteoporosis, renal disease, thyroid disease, other Psychiatric history: anxiety, depression - Past Surgical History Surgical History: appendectomy, cholecystectomy, knee replacement, orthopedic, other, thyroidectomy, other, vascular surgery, LE vascular intervention, arthroscopy - Social History Smoking Status: Former smoker Smokeless Tobacco Status: No Alcohol use: none Drug use: none - Family History Daughter Living Status: Still Living Hx Family Cardiac Disorders: No Hx Family Respiratory Disorders: No Hx Family Cancer: No Hx Family GI Disorders: No Hx Family Endocrine Disorder: No Hx Family Neuromuscular Disorders: No Hx Family Neurologic Disorders: No Hx Family HEENT Disorders: No Hx Family Autoimmune Disorders: No Internal Medicine - H&P: Meds Albuterol Neb [Proventil Neb] 2.5 mg IH Q6H PRN 07/25/16 [History] Cholecalciferol (Vitamin D3) [Vitamin D3] 5,000 unit PO DAILY 07/25/16 [History] Escitalopram [Lexapro] 20 mg PO DAILY 07/25/16 [History] Furosemide [Lasix] 20 mg PO DAILY PRN 07/25/16 [History] Levothyroxine [Synthroid] 125 mcg PO MOTUWETHFRSA 07/25/16 [History] Lisinopril [Zestril] 10 mg PO DAILY 07/25/16 [History] Pantoprazole Sodium [Protonix] 40 mg PO DAILY 07/25/16 [History] Buspirone HCl [Buspar] 7.5 mg PO BID 02/08/17 [History] Glimepiride [Amaryl] 1 mg PO BID 02/08/17 [History] Gabapentin [Neurontin] 600 mg PO TID 02/13/17 [History] ARIPiprazole [Abilify] 2 mg PO DAILY 12/25/17 [History] Albuterol Sulfate [Proair Hfa] 1 - 2 puff IH Q4-6H PRN 12/25/17 [History] Alendronate Sodium [Fosamax] 70 mg PO QWEEK 12/25/17 [History] Atorvastatin Calcium [Lipitor] 20 mg PO HS 12/25/17 [History] Calcitriol [Rocaltrol] 0.25 mcg PO MOWEFR 12/25/17 [History] Cyclobenzaprine HCl 2.5 - 5 mg PO HS PRN 12/25/17 [History] Oxygen 2 l IH AD 12/25/17 [History] traZODone [TraZODone] 50 mg PO HS 12/25/17 [History] 3 Allergy/AdvReac Type Severity Reaction Status Date / Time bupropion [From Wellbutrin] Allergy See Verified 05/07/17 14:16 Comments Diclofenac [From Voltaren] Allergy See Verified 05/07/17 14:16 Comments meclizine Allergy Dizziness Verified 05/07/17 14:16 NSAIDS (Non-Steroidal Allergy See Verified 05/07/17 14:16 Anti-Inflamma Comments Oxycodone [From Percocet] Allergy See Verified 05/07/17 14:16 Comments venlafaxine [From Effexor] Allergy Confusion Verified 05/07/17 14:16 diphenhydramine AdvReac Anxiety Verified 05/07/17 14:16 [From [facility]] All Systems PM: A 10-system review of systems was performed and is negative for pertinent findings except as documented above in the HPI. - Constitutional Constitutional: anorexia, fatigue, lethargy, malaise, weakness - EENT Eyes: no change in vision, no discharge, no pain, no photophobia Ears: no ear discharge, no ear pain, no tinnitus Nose, mouth and throat: no dysphagia, no nasal discharge, no neck pain, no sore throat - Cardiovascular Cardiovascular ROS IM: no chest pain, no diaphoresis, no dyspnea, no lightheadedness, no palpitations, no syncope - Respiratory Respiratory: cough, dyspnea, wheezing, excessive phlegm production, change in phlegm color - Gastrointestinal Gastrointestinal: no abdominal pain, no diarrhea, no hematemesis, no hematochezia, no melena, no nausea, no vomiting - Genitourinary Genitourinary: no change in urinary stream, no dysuria, no flank pain, no hematuria - Musculoskeletal Musculoskeletal ROS IM: no numbness, no tingling - Integumentary Integumentary IM: no rash, no unusual bruising - Neurological Neurological ROS: no confusion, no convulsions, no focal weakness, no numbness, no tingling, no tremor(s) - Hematologic/Lymphatic Hematologic/Lymphatic: no easy bruising - Constitutional Vitals: Temp Pulse Resp BP Pulse Ox 98.8 F 80 11 137/94 96 12/25/17 19:45 12/25/17 22:25 12/25/17 22:25 12/25/17 22:25 12/25/17 22:25 General appearance: Present: A&O X 3, pleasant, no acute distress, answers questions appropriately - Head Head exam: Present: atraumatic, normocephalic - Eye Eye exam: Present: PERRL, conjuntiva pink, sclera anicteric Pupils: Present: PERRL - Neck Neck exam general surgery: Present: supple, trachea midline. Absent: lymphadenopathy - Respiratory Respiratory exam: Present: CTAB. Absent: accessory muscle use, rales, rhonchi, wheezes - Cardiovascular Cardiovascular exam: Present: RRR, +S1, +S2. Absent: diastolic murmur, gallop, rubs, systolic murmur - GI/Abdominal GI/Abdominal exam: Present: normal bowel sounds, soft, no peritoneal signs. Absent: distended, tenderness - Extremities Exam Extremities exam: Present: warm, radial pulses palpable and symmetrical. Absent : calf tenderness, cyanotic, pedal edema - Neurological Exam Neurological exam: Present: CN II-XII intact, oriented X3, no focal deficits. Absent: pronater drift, facial droop, speech deficit - Skin Skin exam: Present: dry, intact Internal Med - H&P Results - Labs CBC & Chem 7: 12/25/17 20:14 12/25/17 20:14 - Assessment and plan (1) COPD exacerbation Current Visit: No Status: Acute Assessment and plan: 77/female Patient is known to have a COPD/obstructive sleep apnea. This is a COPD exacerbation. Likely etiology is infective in origin. Plan: admit as inpatient. Repeat blood gas. Blood gas shows respiratory acidosis along with hypercarbia which goes in favor of exacerbation of COPD/obstructive sleep apnea. Patient is clinically improved on this treatment. IV antibiotics: Ceftriaxone/azithromycin. Intravenous steroids: Solu-Medrol. Inhaled bronchodilators. Continue BiPAP at this point. I have discussed at length with the patient's daughter regarding the prognosis/ plan. If she clinically deteriorates then please consider intubation. (2) Mental status change Current Visit: No Status: Acute Assessment and plan: Upon arrival to the emergency room patient does have a mental status change. I have examined this patient in the emergency department room #16. patient's family is at bedside. Patient is alert and oriented 3. She talks to me in complete sentences. As per family she has improved a lot as compared to the time they brought her to the emergency room. We will continue to monitor her very closely per Qualifiers: Altered mental status type: unspecified Qualified Code(s): R41.82 - Altered mental status, unspecified (3) Obstructive sleep apnea Current Visit: Yes Status: Chronic Assessment and plan: Patient is known to have obstructive sleep apnea. The drowsiness component is a part of exacerbation of obstructive sleep apnea. We will continue BiPAP at this point. Close monitoring of the respiratory status. Repeat ABG in 4 hours. If persistently hypercarbic then consider intubation. I have discussed this case with the night team. (4) Hypothyroidism Current Visit: No Status: Chronic Assessment and plan: Stable Qualifiers: Hypothyroidism type: acquired Qualified Code(s): E03.9 - Hypothyroidism, unspecified (5) Hypertension Current Visit: No Status: Chronic Assessment and plan: Patient is known to have a elevated blood pressure. At this point we will resume home medication. We will monitor patient's blood pressure very closely. Qualifiers: Hypertension type: essential hypertension Qualified Code(s): I10 - Essential (primary) hypertension (6) Dyslipidemia Current Visit: No Status: Chronic Assessment and plan: Patient presently on statin. We will get lipid panels tomorrow. (7) Type 2 diabetes mellitus Current Visit: No Status: Chronic Assessment and plan: Patient is known to have a diabetes mellitus. Patient is presently on oral hypoglycemic agents. We stopped the oral hypoglycemic agent during this hospitalization. We will put patient on a sliding scale as per subcutaneous insulin order set. Qualifiers: Diabetes mellitus terminologist insulin use: without terminologist use Diabetes mellitus complication status: with kidney complications Diabetes mellitus complication detail: with chronic kidney disease Chronic kidney disease stage : stage 3 (moderate) Qualified Code(s): E11.22 - Type 2 diabetes mellitus with diabetic chronic kidney disease; N18.3 - Chronic kidney disease, stage 3 ( moderate) (8) DVT prophylaxis Current Visit: Yes Status: Acute Assessment and plan: Heparin Medical decision making: This patient has a moderate to severe risk of worsening in spite of being on appropriate medication due to the underlying complex medical conditions. - Time Spent With Patient Total time spent is greater than 50% in coordination of care (as documented) at patient's floor/unit and/or counseling patient:
[2017-12-26 00:14] LABS: ABG Base Excess 0 mEq/L (-2 to 3); ABG HCO3 29 mEq/L (21-27); ABG Oxygen Saturation 94 % (95-98); ABG PCO2 68 mmHg (35-45); ABG PH 7.24 pH Units (7.32-7.45); ABG PO2 83 mmHg (85-104); ABG TCO2 31 mEq/L (20-26); Blood Gas PEEP 8 cm H2O; Blood Gas Pressure Support 8 cm H2O
[2017-12-26] MEDS: Ipratropium/Albuterol Neb 3 ML IH SCH ×7 (00:14→23:45)
[2017-12-26] MEDS: Azithromycin 500 MG in D5% in Water 250 ML IVPB SCH ×2 (00:55→23:30)
[2017-12-26] MEDS: *HR* Heparin 5,000 UNIT/ML VIAL SQ SCH ×4 (00:55→23:30)
[2017-12-26] MEDS: MethylPREDNISolone 40 MG/ML VIAL IVP SCH ×3 (00:56→19:39)
[2017-12-26] MEDS: cefTRIAXone 1,000 MG in Water for inj. (sterile) 20 ML 10 ML IVPB SCH ×2 (00:56→23:30)
[2017-12-26 05:29] LABS: Basophils % 0.1 %; Hematocrit 37.4 % (35.3-44.9); Hemoglobin 11.5 g/dL (11.5-15.4); Immature Granulocytes % 0.6 % (0-4); Lymphocytes % 6.4 %; Mean Corpuscular HGB Conc 30.7 g/dL (31.6-35.5); Mean Corpuscular Hemoglobin 29.7 pg (28.0-33.3); Mean Corpuscular Volume 96.6 fL (83.0-100.0); Mean Platelet Volume 9.9 fL (9.4-12.4); Monocytes # 0.3 K/mcL (0.0-1.3); Monocytes % 1.9 %; Neutrophils # 13.5 K/mcL (1.6-8.9); Platelet Count 264 K/mcL (140-400); Red Blood Count 3.87 M/mcL (3.82-4.97); Red Cell Distribution Width 15.2 % (11.5-14.5)
[2017-12-26 05:37] LABS: Prothrombin Time 10.9 Seconds (9.4-12.1)
[2017-12-26 05:40] LABS: Activated Partial Thrombo Time 28.6 Seconds (26.0-36.0)
[2017-12-26 05:56] LABS: Albumin 4.1 g/dL (3.5-5.7); Albumin/Globulin Ratio 1.6 (1.1-2.2); Bilirubin,Total 0.3 mg/dL (0.3-1.0); Calcium 7.6 mg/dL (8.6-10.3); Chol/HDL Ratio 2.2 (0-4.9); Globulin 2.6 g/dL (2.4-3.5); Magnesium 1.8 mg/dL (1.6-2.6); Phosphorous 5.7 mg/dL (2.7-4.5); Potassium 6.1 mEq/L (3.5-5.1); Total Protein 6.7 g/dL (6.4-8.9)
[2017-12-26] MEDS: Insulin LISPRO 300 UNITS/3 ML VIAL SQ SCH ×3 (07:27→16:49)
--- NOTE | 2017-12-26 09:03 | Electrocardiograph Report ---
[address] [address] Test Date: 2017-12-25 Pat Name: Jessica Vela Department: 102 Room: 2N04 Gender: F Sales Estimator: : 1940 Requested By: Paul Zepeda Order Number: [id number] Reading MD: Alicia Arizmendi Measurements Intervals [place] Rate: 77 P: 63 IA: 149 QRS: 4 QRSD: 90 T: 25 QT: 353 QTc: 385 Interpretive Statements SINUS RHYTHM Electronically Signed On 12-26-2017 9:01:56 EDT by Alicia Arizmendi
[2017-12-26] MEDS ORDERED: 0.9 % Sodium Chloride 1,000 ML IVC SCH (09:30)
[2017-12-26] MEDS: ARIPiprazole 2 MG TABLET PO SCH (10:26)
[2017-12-26 15:06] LABS: Calcium 7.3 mg/dL (8.6-10.3); Potassium 4.4 mEq/L (3.5-5.1)
--- NOTE | 2017-12-26 15:46 | Internal Med Progress Note ---
Date of Encounter: 12/26/17 Time of Encounter: 09:30 - Assessment and plan (1) Acute renal failure superimposed on stage 3 chronic kidney disease Current Visit: Yes Status: Acute Assessment and plan: Likely mild dehydration in the setting of diuretics/NITA inhibitor. Limited cautious IV hydration for now. Continue to monitor serum creatinine closely. Baseline serum creatinine around 1.2, currently at 1.67. Hold Lasix and lisinopril for now. Patient is also noted to have hyperkalemia, due to use of NITA inhibitor along with acute kidney injury. We will give a dose of by mouth Kayexalate, continue telemetry monitoring and repeat BMP. Qualifiers: Acute renal failure type: unspecified Qualified Code(s): N17.9 - Acute kidney failure, unspecified; N18.3 - Chronic kidney disease, stage 3 (moderate) ; N18.3 - Chronic kidney disease, stage 3 (moderate) (2) COPD exacerbation Current Visit: Yes Status: Acute Assessment and plan: Improving. Initial ABG showed carbon dioxide retention and respiratory acidosis , subsequent ABGs on BiPAP support showed improvement. Taper down IV steroids as tolerated. Continue empiric IV antibiotics along with breathing treatments and supplemental oxygen. Ventilation perfusion lung scan showed low probability for PE. Chest x-ray showed no acute infiltrates. Echocardiogram shows preserved ejection fraction, mild left ventricular diastolic dysfunction and mild pulmonary hypertension. (3) Obstructive sleep apnea Current Visit: Yes Status: Chronic Assessment and plan: Noted to have obstructive sleep apnea per documentation, however patient is not on CPAP at home. Requires outpatient sleep studies. (4) Hypothyroidism Current Visit: Yes Status: Chronic Assessment and plan: Continue levothyroxine. Qualifiers: Hypothyroidism type: unspecified Qualified Code(s): E03.9 - Hypothyroidism , unspecified (5) Hypertension Current Visit: Yes Status: Chronic Assessment and plan: Hold NITA inhibitor for now. Blood pressure noted to be well controlled. Qualifiers: Hypertension type: essential hypertension Qualified Code(s): I10 - Essential (primary) hypertension (6) Dyslipidemia Current Visit: Yes Status: Chronic (7) Type 2 diabetes mellitus Current Visit: Yes Status: Chronic Assessment and plan: Blood sugars noted to be well controlled. Continue Accu-Chek blood glucose monitoring with sliding scale insulin as needed. Diabetic diet. 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 petroleum terminal plant operator use Diabetes mellitus complication status: with kidney complications Diabetes mellitus complication detail: with chronic kidney disease Chronic kidney disease stage : stage 3 (moderate) Qualified Code(s): E11.22 - Type 2 diabetes mellitus with diabetic chronic kidney disease; N18.3 - Chronic kidney disease, stage 3 ( moderate) (8) DVT prophylaxis Current Visit: Yes Status: Acute Assessment and plan: Heparin - Time Spent With Patient Total time spent is greater than 50% in coordination of care (as documented) at patient's floor/unit and/or counseling patient: - Subjective Interval history: Noted to be alert and oriented. Improved cough and shortness of breath. No chest pain, palpitations, syncope. - Constitutional Vitals: Temp Pulse Resp BP Pulse Ox 97.4 F L 74 16 113/49 92 12/26/17 07:53 12/26/17 15:15 12/26/17 15:06 12/26/17 11:57 12/26/17 15:06 General appearance: Present: A&O X 3, answers questions appropriately - Respiratory Respiratory exam: Present: CTAB (Coarse breath sounds bilaterally, no active wheezing). Absent: accessory muscle use, rales, rhonchi, wheezes - Cardiovascular Cardiovascular exam: Present: RRR, +S1, +S2. Absent: diastolic murmur, gallop, rubs, systolic murmur - GI/Abdominal GI/Abdominal exam: Present: normal bowel sounds, soft (Obese), no peritoneal signs. Absent: distended, tenderness - Extremities Exam Extremities exam: Present: full ROM, pedal edema, warm, radial pulses palpable and symmetrical. Absent: calf tenderness, cyanotic - Neurological Exam Neurological exam: Present: CN II-XII intact, oriented X3, no focal deficits. Absent: pronater drift, facial droop, speech deficit Internal Medicine: Result - Labs CBC & Chem 7: 12/26/17 05:15 12/26/17 14:22 Labs: Short CBC 12/26/17 Range/Units 05:15 WBC 14.9 H (4.3-11.1) K/mcL Hgb 11.5 (11.5-15.4) g/dL Hct 37.4 (35.3-44.9) % Plt Count 264 (140-400) K/mcL Neutrophils # 13.5 H (1.6-8.9) K/mcL BMP 12/26/17 12/26/17 05:15 14:22 Sodium 135 L 140 Potassium 6.1 H 4.4 D Chloride 105 108 H Carbon Dioxide 25 27 BUN 37 H 42 H Creatinine 1.67 H 1.58 H Glucose 132 H 144 H Calcium 7.6 L 7.3 L Cardiac Enzymes 12/25/17 12/26/17 12/26/17 Range/Units 23:43 05:15 12:08 Troponin I < 0.03 < 0.03 < 0.03 (< 0.04) ng/mL Liver Function 12/26/17 Range/Units 05:15 Total Bilirubin 0.3 (0.3-1.0) mg/dL AST 17 (13-39) Units/L ALT 13 (7-52) Units/L Alkaline Phosphatase 112 H (34-104) Units/L Albumin 4.1 (3.5-5.7) g/dL - ABG Interpretation ABG results: ABG ABG pH 7.24 pH Units (7.32-7.45) L 12/26/17 00:08 ABG pCO2 68 mmHg (35-45) H 12/26/17 00:08 ABG pO2 83 mmHg (85-104) L 12/26/17 00:08 ABG O2 Saturation 94 % (95-98) L 12/26/17 00:08 PT/INR, D-dimer PT 10.9 Seconds (9.4-12.1) 12/26/17 05:15 - Impressions Impressions Echocardiogram 12/25/17 23:22 Impressions: LVEF 60-65%. Normal LV chamber size, wall thickness and function. Mild left ventricular diastolic dysfunction. Normal right ventricular structure and function. Mild pulmonary hypertension. Estimated RVSP is 40 mmHg. No significant valvular dysfunction. Left Ventricular Wall Motion: Rest Echo Findings All wall segments showed normal motion. Findings: Study Quality * Technically adequate exam. ECG Findings * Normal sinus rhythm. Left Ventricle * LVEF 60-65%. * Normal LV chamber size, wall thickness and function. * Mild left ventricular diastolic dysfunction. Right Ventricle * Normal right ventricular structure and function. Left Atrium * Moderately dilated left atrium. Right Atrium * Mildly dilated right atrium. Interatrial Septum * Interatrial septum not well evaluated. Aortic Valve * Moderately sclerotic appearing aortic valve. Unable to determine the number of leaflets. * Trace aortic regurgitation. * No aortic stenosis. Mitral Valve * Normal mitral valve structure and function. * No mitral stenosis. * Trace mitral regurgitation. Tricuspid Valve * Normal tricuspid valve structure and function. * Trace tricuspid regurgitation. * Mild pulmonary hypertension. * Estimated RVSP is 40 mmHg. * Estimated RA pressure is 5 mmHg. Pulmonic Valve * Normal pulmonic valve structure and function. * No pulmonic regurgitation. Aorta * Normally sized aortic root. Pericardium * The pericardium appears normal. IVC * Normal IVC dimensions and inspiratory collapse. Pulmonary Artery * Normal visualized portions of the main pulmonary artery. Pulmonary Perfusion Imaging 12/26/17 01:25 IMPRESSION: Very low probability for pulmonary embolism. D/ / Dariusz Barnett MD / Dariusz Barnett MD Interpreting Provider: Dariusz Barnett MD Consult Discharge Plan - Plan Referrals: Oswaldo Chen DO [Primary Care Provider] - 01/02/18 2:00 pm
[2017-12-26] MEDS ORDERED: traZODone 50 MG TABLET PO SCH (21:00)
[2017-12-27 03:25] LABS: Basophils % 0.1 %; Hematocrit 32.2 % (35.3-44.9); Hemoglobin 10.1 g/dL (11.5-15.4); Immature Granulocytes % 0.6 % (0-4); Lymphocytes # 0.8 K/mcL (0.6-4.6); Lymphocytes % 6.3 %; Mean Corpuscular HGB Conc 31.4 g/dL (31.6-35.5); Mean Corpuscular Hemoglobin 30.2 pg (28.0-33.3); Mean Corpuscular Volume 96.4 fL (83.0-100.0); Mean Platelet Volume 10.1 fL (9.4-12.4); Monocytes # 0.8 K/mcL (0.0-1.3); Monocytes % 6.1 %; Neutrophils # 11.4 K/mcL (1.6-8.9); Platelet Count 214 K/mcL (140-400); Red Blood Count 3.34 M/mcL (3.82-4.97); Red Cell Distribution Width 15.2 % (11.5-14.5); Segmented Neutrophils % 86.9 %
[2017-12-27 03:46] LABS: Potassium 4.5 mEq/L (3.5-5.1)
[2017-12-27] MEDS: Ipratropium/Albuterol Neb 3 ML IH SCH ×3 (04:18→11:12)
[2017-12-27] MEDS: Insulin LISPRO 300 UNITS/3 ML VIAL SQ SCH ×2 (08:36→11:24)
[2017-12-27] MEDS: MethylPREDNISolone 40 MG/ML VIAL IVP SCH (08:51)
[2017-12-27] MEDS: ARIPiprazole 2 MG TABLET PO SCH (08:52)
[2017-12-27] MEDS: *HR* Heparin 5,000 UNIT/ML VIAL SQ SCH (08:52)
[2017-12-27 11:12] VITALS: BP 120/92
[2017-12-27 11:27] LABS: VBG HCO3 29 mEq/L (21-27); VBG PCO2 77 mmHg (41-51); VBG PH 7.18 pH Units (7.32-7.42); VBG PO2 62 mmHg (25-50)
--- NOTE | 2017-12-27 11:34 | Discharge Summary ---
- NOTES TO OUTPATIENT PROVIDER Notes to Outpatient Provider: Acute COPD. ACEI is held due to hyperkalemia and CLEO;. Lasix is held for a few days Date of Encounter: 12/27/17 Time of Encounter: 11:32 - Discharge Diagnosis (1) Acute renal failure superimposed on stage 3 chronic kidney disease Priority: Primary Status: Acute Qualifiers: Acute renal failure type: unspecified Qualified Code(s): N17.9 - Acute kidney failure, unspecified; N18.3 - Chronic kidney disease, stage 3 (moderate) ; N18.3 - Chronic kidney disease, stage 3 (moderate) (2) COPD exacerbation Priority: Primary Status: Acute (3) Obstructive sleep apnea Priority: Secondary Status: Chronic (4) Hypothyroidism Priority: Secondary Status: Chronic Qualifiers: Hypothyroidism type: unspecified Qualified Code(s): E03.9 - Hypothyroidism , unspecified (5) Hypertension Priority: Secondary Status: Chronic Qualifiers: Hypertension type: essential hypertension Qualified Code(s): I10 - Essential (primary) hypertension (6) Dyslipidemia Priority: Secondary Status: Chronic (7) Type 2 diabetes mellitus Priority: Secondary Status: Chronic Qualifiers: Diabetes mellitus custodial insulin use: without custodial use Diabetes mellitus complication status: with kidney complications Diabetes mellitus complication detail: with chronic kidney disease Chronic kidney disease stage : stage 3 (moderate) Qualified Code(s): E11.22 - Type 2 diabetes mellitus with diabetic chronic kidney disease; N18.3 - Chronic kidney disease, stage 3 ( moderate); N18.3 - Chronic kidney disease, stage 3 (moderate) Hospital course: Ms. Vela is a 77 year old female with the above medical problems, who was admitted with confusion and altered mental status, thought to be due to taking extra doses of gabapentin. She was also noted to have mild acute exacerbation of COPD with ABG showing respiratory acidosis with hypercarbia, which is likely due to not using continue supplemental home oxygen as directed. Patient improved significantly with IV steroids, breathing treatments, when necessary BiPAP support and supplemental oxygen. She also received empiric IV antibiotics, which are now discontinued due to no evidence of pneumonia, blood cultures remaining negative. Patient is currently at baseline oxygen requirements of 3 L/m via nasal cannula. She was noted to have acute on chronic renal failure with hyperkalemia at admission, serum creatinine is improving with IV hydration. NITA inhibitor and diuretic have been held. Patient follows with outpatient physical therapy and is medically stable to resume this therapy at this time. Discharge discussed with: patient, family - Time Spent with Patient Total time spent providing and/or coordinating discharge services: Greater than 30 minutes (40 min) - Discharge Medications Prescriptions: predniSONE [PredniSONE] 40 mg PO DAILY #6 tablet Home Medications: Albuterol Neb [Proventil Neb] 2.5 mg IH Q6H PRN 07/25/16 [History] Cholecalciferol (Vitamin D3) [Vitamin D3] 5,000 unit PO DAILY 07/25/16 [History] Escitalopram [Lexapro] 20 mg PO DAILY 07/25/16 [History] Levothyroxine [Synthroid] 125 mcg PO MOTUWETHFRSA 07/25/16 [History] Pantoprazole Sodium [Protonix] 40 mg PO DAILY 07/25/16 [History] Buspirone HCl [Buspar] 7.5 mg PO BID 02/08/17 [History] Glimepiride [Amaryl] 1 mg PO BID 02/08/17 [History] Gabapentin [Neurontin] 600 mg PO TID 02/13/17 [History] ARIPiprazole [Abilify] 2 mg PO DAILY 12/25/17 [History] Albuterol Sulfate [Proair Hfa] 1 - 2 puff IH Q4-6H PRN 12/25/17 [History] Alendronate Sodium [Fosamax] 70 mg PO QWEEK 12/25/17 [History] Atorvastatin Calcium [Lipitor] 20 mg PO HS 12/25/17 [History] Calcitriol [Rocaltrol] 0.25 mcg PO MOWEFR 12/25/17 [History] Cyclobenzaprine HCl 2.5 - 5 mg PO HS PRN 12/25/17 [History] Oxygen 2 l IH AD 12/25/17 [History] traZODone [TraZODone] 50 mg PO HS 12/25/17 [History] predniSONE [PredniSONE] 40 mg PO DAILY #6 tablet 12/27/17 [Rx] Furosemide [Lasix] 20 mg PO DAILY PRN #0 12/31/17 [Rx] Allergies/Adverse Reactions: 3 Allergy/AdvReac Type Severity Reaction Status Date / Time bupropion [From Wellbutrin] Allergy See Verified 05/07/17 14:16 Comments Diclofenac [From Voltaren] Allergy See Verified 05/07/17 14:16 Comments meclizine Allergy Dizziness Verified 05/07/17 14:16 NSAIDS (Non-Steroidal Allergy See Verified 05/07/17 14:16 Anti-Inflamma Comments Oxycodone [From Percocet] Allergy See Verified 05/07/17 14:16 Comments venlafaxine [From Effexor] Allergy Confusion Verified 05/07/17 14:16 diphenhydramine AdvReac Anxiety Verified 05/07/17 14:16 [From Benadryl] Date of admission: 12/25/17 23:14 Primary care physician: Oswaldo Chen DO Consults: 12/26/17 01:07 Consult to Senior Producer [CONS] Routine Reason for SW Consult: Possible need for home health. Discharging clinician: Ana Maria Emery Anticipated date of discharge: 12/27/17 - Constitutional Vitals: Temp Pulse Resp BP Pulse Ox 98.1 F 72 18 120/92 96 12/27/17 11:07 12/27/17 11:07 12/27/17 11:13 12/27/17 11:07 12/27/17 11:13 General appearance: Present: A&O X 3, answers questions appropriately - Respiratory Respiratory exam: Present: CTAB (coarse breath sounds B/L). Absent: accessory muscle use, rales, rhonchi, wheezes - Cardiovascular Cardiovascular exam: Present: RRR, +S1, +S2. Absent: diastolic murmur, gallop, rubs, systolic murmur - Patient Status Disposition: Home, Self-Care Condition: Fair Functional capacity at discharge: uses cane/walker Overall status at discharge: patient is progressing back to baseline - Discharge Instructions Instructions: Prednisone (By mouth), Chronic Obstructive Pulmonary Disease (DC) Follow Up With: Oswaldo Chen DO [Primary Care Provider] - 01/02/18 2:00 pm Forms: ED Satisfaction Letter - Diet and Activity Activity: resume usual activities as tolerated, wear oxygen at all times Diet: diabetic diet, low salt diet
[2017-12-28] MEDS ORDERED: predniSONE 20 MG TABLET PO SCH (09:00)
== END 2017-12-27 12:21 | disposition home or self-care (01) | DRG 190 ==
LOC: EMEROO 19:38 → 2NENU 19:38 → 2NNU 23:08 → SUATTDRO 23:14 → 2NNU 12-26 00:19
PROVIDERS: ADMIT Pediatrics; ATTEND Internal Medicine

== ENCOUNTER 2020-08-31 10:39 | Inpatient (IN) ==
[2020-08-31 11:26] LABS: Basophils % 0.4 %; Hemoglobin 11.9 g/dL (11.5-15.4); Immature Granulocytes % 1.4 % (0-4); Lymphocytes # 1.2 K/mcL (0.6-4.6); Mean Corpuscular HGB Conc 31.3 g/dL (31.6-35.5); Mean Corpuscular Hemoglobin 29.2 pg (28.0-33.3); Mean Corpuscular Volume 93.1 fL (83.0-100.0); Mean Platelet Volume 9.8 fL (9.4-12.4); Monocytes # 0.7 K/mcL (0.0-1.3); Monocytes % 9.6 %; Neutrophils # 5.5 K/mcL (1.6-8.9); Platelet Count 225 K/mcL (140-400); Red Blood Count 4.08 M/mcL (3.82-4.97); Red Cell Distribution Width 13.9 % (11.5-14.5); Segmented Neutrophils % 72.6 %; White Blood Count 7.6 K/mcL (4.3-11.1)
[2020-08-31 11:30] LABS: ABG Base Excess 2 mEq/L (-2 to 3); ABG HCO3 26 mEq/L (21-27); ABG Oxygen Saturation 90 % (95-98); ABG PCO2 38 mmHg (35-45); ABG PH 7.45 pH Units (7.32-7.45); ABG PO2 56 mmHg (85-104); ABG TCO2 27 mEq/L (20-26)
[2020-08-31 11:34] LABS: INR 1.2; Prothrombin Time 13.5 Seconds (9.4-12.1)
[2020-08-31 11:36] LABS: Activated Partial Thrombo Time 27.9 Seconds (26.0-36.0)
[2020-08-31 11:47] LABS: Alanine Aminotransferase 9 Units/L (7-52); Albumin 3.6 g/dL (3.5-5.7); Albumin/Globulin Ratio 1.2 (1.1-2.2); Alkaline Phosphatase 69 Units/L (34-104); Aspartate Amino Transferase 15 Units/L (13-39); BUN/Creatinine Ratio 16 (6-26); Bilirubin,Direct 0.1 mg/dL (0.0-0.2); Bilirubin,Indirect 0.3 mg/dL (0.0-1.0); Bilirubin,Total 0.4 mg/dL (0.3-1.0); Blood Urea Nitrogen 16 mg/dL (8-23); C-Reactive Protein 164 mg/L (Less than 10); Calcium 8.4 mg/dL (8.6-10.3); Carbon Dioxide 29 mEq/L (23-29); Chloride 100 mEq/L (98-107); Globulin 2.9 g/dL (2.4-3.5); Glucose 89 mg/dL (70-105); Lactate Dehydrogenase 162 Units/L (140-271); Magnesium 1.3 mg/dL (1.6-2.6); Osmolality,Calculated 285 (280-300); Phosphorous 2.7 mg/dL (2.7-4.5); Potassium 3.6 mEq/L (3.5-5.1); Sodium 137 mEq/L (136-145); Total Protein 6.5 g/dL (6.4-8.9); Troponin I < 0.03 ng/mL (< 0.04); eGFR For African Americans > 60 (> 60); eGFR For Non-African Americans 55 (> 60)
[2020-08-31 12:05] LABS: Ferritin 82 ng/mL (10-120)
[2020-08-31] MEDS ORDERED: Dexamethasone 4 MG/ML VIAL IVP ONE (12:49)
[2020-08-31 13:33] LABS: Bilirubin,Urine Negative (Negative); Blood,Urine Negative (Negative); Clarity,Urine Clear (Clear); Color,Urine Light-Yellow (Yellow); Glucose,Urine (UA) Normal (Normal); Ketones,Urine Trace mg/dL (Negative); Leukocyte Esterase,Urine Negative (Negative); Mucus,Urine Few per lpf (None-Few); Nitrite,Urine Negative (Negative); Protein,Urine 100 mg/dL (Neg-Trace); RBC,Urine 0-3 per hpf (0-3); Specific Gravity,Urine 1.023 (1.010-1.025); Squamous Epithelial Cell,Urine Few per hpf (None-Few); Urobilinogen,Urine Normal (Normal); WBC,Urine 0-3 per hpf (0-3)
[2020-08-31] MEDS ORDERED: Ondansetron 4 MG/2 ML VIAL IVP PRN (14:56)
[2020-08-31] MEDS ORDERED: Naloxone 0.4 MG/ML INJ IVP PRN (14:56)
[2020-08-31] MEDS: Ipratropium 1 PUFF INHALER IH SCH ×2 (16:50→19:46)
[2020-08-31] MEDS: Spironolactone 25 MG TABLET PO SCH (18:23)
[2020-08-31] MEDS ORDERED: D5% in Water 1,000 ML IVC PRN (19:12)
[2020-08-31] MEDS ORDERED: Dextrose Gel 15 GM/37.5 ML TUBE PO PRN ×2 (19:12)
[2020-08-31] MEDS ORDERED: *HR* Dextrose 50 % in Water (Vial) 50 ML VIAL IVP PRN (19:12)
[2020-08-31] MEDS: Furosemide 40 MG/4 ML VIAL IVP SCH (20:18)
[2020-08-31] MEDS: Insulin LISPRO 300 UNITS/3 ML VIAL SUBQ SCH (20:34)
[2020-09-01] MEDS: Ipratropium 1 PUFF INHALER IH SCH ×7 (00:12→23:49)
[2020-09-01 05:02] LABS: Basophils % 0.4 %; Eosinophils % 0.1 %; Hematocrit 39.2 % (35.3-44.9); Hemoglobin 12.2 g/dL (11.5-15.4); Immature Granulocytes % 1.2 % (0-4); Lymphocytes # 1.5 K/mcL (0.6-4.6); Mean Corpuscular HGB Conc 31.1 g/dL (31.6-35.5); Mean Corpuscular Hemoglobin 29.1 pg (28.0-33.3); Mean Corpuscular Volume 93.6 fL (83.0-100.0); Mean Platelet Volume 10.5 fL (9.4-12.4); Monocytes # 0.9 K/mcL (0.0-1.3); Monocytes % 11.6 %; Neutrophils # 4.8 K/mcL (1.6-8.9); Platelet Count 201 K/mcL (140-400); Red Blood Count 4.19 M/mcL (3.82-4.97); Red Cell Distribution Width 13.7 % (11.5-14.5); Segmented Neutrophils % 65.7 %; White Blood Count 7.3 K/mcL (4.3-11.1)
[2020-09-01 05:08] LABS: Fibrinogen 500 mg/dL (169-393)
[2020-09-01 05:10] LABS: D-Dimer 1524 ng/mLFEU (0-500)
[2020-09-01 05:17] LABS: VBG HCO3 28 mEq/L (21-27); VBG PCO2 46 mmHg (41-51); VBG PH 7.38 pH Units (7.32-7.42); VBG PO2 167 mmHg (25-50)
[2020-09-01 05:45] LABS: BUN/Creatinine Ratio 21 (6-26); Blood Urea Nitrogen 21 mg/dL (8-23); Calcium 8.3 mg/dL (8.6-10.3); Carbon Dioxide 24 mEq/L (23-29); Chloride 101 mEq/L (98-107); Glucose 108 mg/dL (70-105); Magnesium 1.8 mg/dL (1.6-2.6); Osmolality,Calculated 292 (280-300); Potassium 3.5 mEq/L (3.5-5.1); Sodium 139 mEq/L (136-145); eGFR For African Americans > 60 (> 60); eGFR For Non-African Americans 54 (> 60)
[2020-09-01] MEDS: *HR* Enoxaparin 40 MG/0.4 ML SYRINGE SQ SCH (06:12)
[2020-09-01 07:36] LABS: Thyroid Stimulating Hormone 0.955 mcIU/mL (0.340-5.600)
[2020-09-01] MEDS: Insulin LISPRO 300 UNITS/3 ML VIAL SUBQ SCH ×4 (08:22→19:37)
[2020-09-01] MEDS: Dexamethasone Sodium Phos/PF 10 MG/ML VIAL IVP SCH (09:46)
[2020-09-01] MEDS: Spironolactone 25 MG TABLET PO SCH (09:46)
[2020-09-01] MEDS: Furosemide 40 MG/4 ML VIAL IVP SCH ×2 (09:46→19:36)
[2020-09-01 10:11] LABS: Estimated Average Glucose 140 mg/dl; Hemoglobin A1C 6.5 %
[2020-09-01] MEDS ORDERED: traZODone 50 MG TABLET PO PRN (17:43)
[2020-09-01] MEDS: Gabapentin 400 MG CAPSULE PO SCH (19:36)
[2020-09-01] MEDS: Acetaminophen 325 MG TABLET PO PRN (23:11)
[2020-09-02 02:51] LABS: Fibrinogen 552 mg/dL (169-393)
[2020-09-02 02:52] LABS: Basophils % 0.2 %; Hematocrit 40.3 % (35.3-44.9); Hemoglobin 12.7 g/dL (11.5-15.4); Immature Granulocytes % 0.9 % (0-4); Lymphocytes # 0.9 K/mcL (0.6-4.6); Lymphocytes % 8.4 %; Mean Corpuscular HGB Conc 31.5 g/dL (31.6-35.5); Mean Corpuscular Hemoglobin 28.5 pg (28.0-33.3); Mean Corpuscular Volume 90.6 fL (83.0-100.0); Mean Platelet Volume 10.4 fL (9.4-12.4); Monocytes % 9.8 %; Neutrophils # 8.5 K/mcL (1.6-8.9); Platelet Count 283 K/mcL (140-400); Red Blood Count 4.45 M/mcL (3.82-4.97); Red Cell Distribution Width 13.8 % (11.5-14.5); Segmented Neutrophils % 80.7 %; White Blood Count 10.5 K/mcL (4.3-11.1)
[2020-09-02 02:53] LABS: D-Dimer 1187 ng/mLFEU (0-500)
[2020-09-02 03:04] LABS: Calcium 8.3 mg/dL (8.6-10.3); Magnesium 1.6 mg/dL (1.6-2.6); Potassium 3.1 mEq/L (3.5-5.1)
[2020-09-02] MEDS: Ipratropium 1 PUFF INHALER IH SCH ×6 (03:49→23:01)
[2020-09-02] MEDS: *HR* Enoxaparin 40 MG/0.4 ML SYRINGE SQ SCH (06:11)
[2020-09-02] MEDS: Acetaminophen 325 MG TABLET PO PRN ×2 (06:35→17:13)
[2020-09-02] MEDS ORDERED: ISOSORBIDE MONONITRATE PO SCH (09:00)
[2020-09-02] MEDS ORDERED: Cyanocobalamin (B-12) 1,000 MCG TABLET PO SCH (09:00)
[2020-09-02] MEDS: Insulin LISPRO 300 UNITS/3 ML VIAL SUBQ SCH ×4 (09:13→19:52)
[2020-09-02] MEDS: Dexamethasone Sodium Phos/PF 10 MG/ML VIAL IVP SCH (09:14)
[2020-09-02] MEDS: Gabapentin 400 MG CAPSULE PO SCH ×3 (09:15→19:47)
[2020-09-02] MEDS: ARIPiprazole 5 MG TABLET PO SCH (09:15)
[2020-09-02] MEDS ORDERED: 0.9 % Sodium Chloride 500 ML IVC ONE ×2 (11:18→17:39)
[2020-09-02 14:41] LABS: Calcium 8.2 mg/dL (8.6-10.3); Potassium 3.8 mEq/L (3.5-5.1)
[2020-09-02] MEDS ORDERED: calcitrioL 0.25 MCG CAPSULE PO SCH (17:43)
[2020-09-03] MEDS ORDERED: GuaiFENesin Liq 200 MG/10 ML UDC PO PRN (01:03)
[2020-09-03] MEDS: Ipratropium 1 PUFF INHALER IH SCH ×3 (03:53→12:00)
[2020-09-03 05:35] LABS: Calcium 7.8 mg/dL (8.6-10.3); Potassium 4.1 mEq/L (3.5-5.1)
[2020-09-03] MEDS: *HR* Enoxaparin 40 MG/0.4 ML SYRINGE SQ SCH (06:05)
[2020-09-03] MEDS ORDERED: Ringers Solution, Lactated 1,000 ML IVC ONE (08:28)
[2020-09-03] MEDS: Insulin LISPRO 300 UNITS/3 ML VIAL SUBQ SCH ×2 (10:41→12:29)
[2020-09-03] MEDS: Gabapentin 400 MG CAPSULE PO SCH ×2 (10:47→14:17)
[2020-09-03] MEDS: ARIPiprazole 5 MG TABLET PO SCH (10:48)
[2020-09-03] MEDS: Dexamethasone Sodium Phos/PF 10 MG/ML VIAL IVP SCH (10:48)
[2020-09-03 12:19] VITALS: BP 114/65
[2020-09-03 14:05] LABS: Potassium 4.2 mEq/L (3.5-5.1)
== END 2020-09-03 16:34 | disposition home health service (06) | DRG 177 ==
LOC: 3BNU 10:39 → EMEROOARM 10:39 → SUATTDRO 14:19 → 3BNU 14:53 → SUATTDRO 09-01 13:45
PROVIDERS: ADMIT Pharmacist; ATTEND Internal Medicine

== ENCOUNTER 2020-11-10 10:49 | Observation (INO) ==
[2020-11-10] MEDS ORDERED: 0.9 % Sodium Chloride 1,000 ML IVC ONE (11:23)
[2020-11-10] MEDS ORDERED: Ondansetron 4 MG/2 ML VIAL IVP ONE (11:25)
[2020-11-10] MEDS ORDERED: Isovue-370 500 ML BOTTLE IVP ONE (11:46)
[2020-11-10 12:39] LABS: Basophils # 0.1 K/mcL (0.0-0.2); Basophils % 0.3 %; Eosinophils # 0.1 K/mcL (0.0-0.6); Eosinophils % 0.6 %; Hematocrit 37.8 % (35.3-44.9); Hemoglobin 11.3 g/dL (11.5-15.4); Immature Granulocytes % 0.6 % (0-4); Lymphocytes # 2.1 K/mcL (0.6-4.6); Lymphocytes % 11.7 %; Mean Corpuscular HGB Conc 29.9 g/dL (31.6-35.5); Mean Corpuscular Hemoglobin 29.3 pg (28.0-33.3); Mean Corpuscular Volume 97.9 fL (83.0-100.0); Mean Platelet Volume 10.3 fL (9.4-12.4); Monocytes # 1.6 K/mcL (0.0-1.3); Monocytes % 8.9 %; Neutrophils # 14.1 K/mcL (1.6-8.9); Platelet Count 273 K/mcL (140-400); Red Blood Count 3.86 M/mcL (3.82-4.97); Red Cell Distribution Width 15.2 % (11.5-14.5); Segmented Neutrophils % 77.9 %; White Blood Count 18.1 K/mcL (4.3-11.1)
[2020-11-10 12:55] LABS: INR 1.1; Prothrombin Time 12.5 Seconds (9.4-12.1)
[2020-11-10 12:59] LABS: Bilirubin,Urine Negative (Negative); Blood,Urine Negative (Negative); Clarity,Urine Clear (Clear); Color,Urine Yellow (Yellow); Glucose,Urine (UA) Normal (Normal); Hyaline Casts,Urine Few per lpf (None Seen); Ketones,Urine Negative (Negative); Leukocyte Esterase,Urine Large (Negative); Mucus,Urine Few per lpf (None-Few); Nitrite,Urine Negative (Negative); Protein,Urine 50 mg/dL (Neg-Trace); RBC,Urine 0-3 per hpf (0-3); Specific Gravity,Urine 1.022 (1.010-1.025); Squamous Epithelial Cell,Urine Moderate per hpf (None-Few); Transitional Epi Cells,Urine Few per hpf (None-Few); Urobilinogen,Urine Normal (Normal)
[2020-11-10 13:01] LABS: Alanine Aminotransferase 10 Units/L (7-52); Albumin/Globulin Ratio 1.5 (1.1-2.2); Alkaline Phosphatase 59 Units/L (34-104); Aspartate Amino Transferase 12 Units/L (13-39); BUN/Creatinine Ratio 12 (6-26); Bilirubin,Direct 0.1 mg/dL (0.0-0.2); Bilirubin,Indirect 0.3 mg/dL (0.0-1.0); Bilirubin,Total 0.4 mg/dL (0.3-1.0); Blood Urea Nitrogen 17 mg/dL (8-23); Calcium 8.2 mg/dL (8.6-10.3); Carbon Dioxide 31 mEq/L (23-29); Chloride 102 mEq/L (98-107); Globulin 2.6 g/dL (2.4-3.5); Glucose 95 mg/dL (70-105); Osmolality,Calculated 289 (280-300); Potassium 4.1 mEq/L (3.5-5.1); Sodium 139 mEq/L (136-145); Total Protein 6.6 g/dL (6.4-8.9); Troponin I < 0.03 ng/mL (< 0.04); eGFR For African Americans 45 (> 60); eGFR For Non-African Americans 37 (> 60)
[2020-11-10 13:14] LABS: Thyroid Stimulating Hormone 3.277 mcIU/mL (0.340-5.600)
[2020-11-10 14:16] LABS: VBG HCO3 33 mEq/L (21-27); VBG PCO2 75 mmHg (41-51); VBG PH 7.26 pH Units (7.32-7.42); VBG PO2 40 mmHg (25-50)
[2020-11-10 14:22] LABS: Adenovirus Not Detected (Not Detect); Bordetella Pertussis Not Detected (Not Detect); Coronavirus 229E Not Detected (Not Detect); Coronavirus HKU1 Not Detected (Not Detect); Coronavirus NL63 Not Detected (Not Detect); Coronavirus OC43 Not Detected (Not Detect); Human Metapneumovirus Not Detected (Not Detect); Human Rhinovirus/Enterovirus Not Detected (Not Detect); Influenza A Subtype 2009 H1 Not Detected (Not Detect); Influenza B Not Detected (Not Detect); Parainfluenza Virus 1 Not Detected (Not Detect); Parainfluenza Virus 2 Not Detected (Not Detect); Parainfluenza Virus 3 Not Detected (Not Detect); Parainfluenza Virus 4 Not Detected (Not Detect); Respiratory Syncytial Virus Not Detected (Not Detect); SARS-CoV-2 Not Detected (Not Detect)
[2020-11-10 14:23] LABS: Chlamydophila pneumoniae Not Detected (Not Detect); Mycoplasma pneumoniae Not Detected (Not Detect)
[2020-11-10] MEDS ORDERED: 0.9 % Sodium Chloride 1,000 ML IV ONE (15:54)
[2020-11-10] MEDS ORDERED: levoFLOXacin 750 MG/150 ML 750 MG/150 ML BAG IVPB ONE (15:54)
[2020-11-10] MEDS ORDERED: Ondansetron 4 MG/2 ML VIAL IVP PRN (17:33)
[2020-11-10] MEDS ORDERED: Naloxone 0.4 MG/ML INJ IVP PRN (17:33)
[2020-11-10] MEDS ORDERED: traZODone 50 MG TABLET PO PRN (17:38)
[2020-11-10] MEDS ORDERED: D5% in Water 1,000 ML IVC PRN (17:49)
[2020-11-10] MEDS ORDERED: Dextrose Gel 15 GM/37.5 ML TUBE PO PRN ×2 (17:49)
[2020-11-10] MEDS ORDERED: *HR* Dextrose 50 % in Water (Vial) 50 ML VIAL IVP PRN (17:49)
[2020-11-10 19:05] LABS: Estimated Average Glucose 120 mg/dl; Hemoglobin A1C 5.8 %
[2020-11-10] MEDS: Budesonide/Formoterol 160/4.5 1 PUFF INH IH SCH (20:08)
[2020-11-10] MEDS: Ipratropium/Albuterol Neb 3 ML IH SCH ×2 (20:08→23:26)
[2020-11-10] MEDS: Insulin LISPRO 300 UNITS/3 ML VIAL SUBQ SCH (22:46)
[2020-11-10] MEDS: Piperacillin/Tazobactam 3.375 GM in 0.9 % Sodium Chloride Mini Bag 100 ML IVPB SCH (22:49)
[2020-11-10] MEDS: MethylPREDNISolone 40 MG/ML VIAL IVP SCH (22:50)
[2020-11-11] MEDS: MethylPREDNISolone 40 MG/ML VIAL IVP SCH ×2 (00:41→08:06)
[2020-11-11] MEDS: Piperacillin/Tazobactam 3.375 GM in 0.9 % Sodium Chloride Mini Bag 100 ML IVPB SCH ×2 (00:42→09:52)
[2020-11-11 02:17] LABS: Basophils % 0.2 %; Eosinophils # 0.2 K/mcL (0.0-0.6); Eosinophils % 1.5 %; Hematocrit 32.5 % (35.3-44.9); Immature Granulocytes % 0.3 % (0-4); Lymphocytes # 2.6 K/mcL (0.6-4.6); Mean Corpuscular HGB Conc 30.8 g/dL (31.6-35.5); Mean Corpuscular Hemoglobin 30.2 pg (28.0-33.3); Mean Corpuscular Volume 98.2 fL (83.0-100.0); Mean Platelet Volume 10.7 fL (9.4-12.4); Monocytes # 1.2 K/mcL (0.0-1.3); Monocytes % 9.2 %; Neutrophils # 8.8 K/mcL (1.6-8.9); Platelet Count 225 K/mcL (140-400); Red Blood Count 3.31 M/mcL (3.82-4.97); Red Cell Distribution Width 15.3 % (11.5-14.5); Segmented Neutrophils % 68.8 %; White Blood Count 12.7 K/mcL (4.3-11.1)
[2020-11-11 03:10] LABS: Calcium 7.5 mg/dL (8.6-10.3); Magnesium 1.7 mg/dL (1.6-2.6); Phosphorous 2.9 mg/dL (2.7-4.5); Potassium 3.6 mEq/L (3.5-5.1)
[2020-11-11] MEDS: Ipratropium/Albuterol Neb 3 ML IH SCH ×6 (03:43→23:26)
[2020-11-11] MEDS: Budesonide/Formoterol 160/4.5 1 PUFF INH IH SCH ×2 (07:48→20:18)
[2020-11-11] MEDS: Insulin LISPRO 300 UNITS/3 ML VIAL SUBQ SCH ×4 (08:06→21:31)
[2020-11-11] MEDS: ARIPiprazole 5 MG TABLET PO SCH (08:07)
[2020-11-11] MEDS: Isosorbide MONOnitrate (24 HR) 30 MG TAB.ER.24H PO SCH (08:07)
[2020-11-11 08:24] LABS: VBG HCO3 28 mEq/L (21-27); VBG PCO2 51 mmHg (41-51); VBG PH 7.36 pH Units (7.32-7.42); VBG PO2 233 mmHg (25-50)
[2020-11-11] MEDS ORDERED: calcitrioL 0.25 MCG CAPSULE PO SCH (09:00)
[2020-11-11] MEDS ORDERED: Azithromycin 500 MG in 0.9 % Sodium Chloride 250 ML IVPB SCH (09:00)
[2020-11-11] MEDS ORDERED: Cyanocobalamin (B-12) 1,000 MCG TABLET PO SCH (09:00)
[2020-11-11] MEDS ORDERED: *HR* Enoxaparin 40 MG/0.4 ML SYRINGE SQ ONE (10:50)
[2020-11-11] MEDS ORDERED: levoFLOXacin 750 MG TABLET PO SCH (16:00)
[2020-11-12] MEDS ORDERED: rOPINIRole 0.25 MG TABLET PO SCH (01:45)
[2020-11-12 02:16] LABS: Hematocrit 31.1 % (35.3-44.9); Hemoglobin 9.7 g/dL (11.5-15.4); Mean Corpuscular HGB Conc 31.2 g/dL (31.6-35.5); Mean Corpuscular Hemoglobin 29.6 pg (28.0-33.3); Mean Corpuscular Volume 94.8 fL (83.0-100.0); Mean Platelet Volume 10.6 fL (9.4-12.4); Platelet Count 232 K/mcL (140-400); Red Blood Count 3.28 M/mcL (3.82-4.97); Red Cell Distribution Width 15.1 % (11.5-14.5); White Blood Count 13.4 K/mcL (4.3-11.1)
[2020-11-12 02:31] LABS: Calcium 7.7 mg/dL (8.6-10.3); Magnesium 1.6 mg/dL (1.6-2.6); Potassium 3.6 mEq/L (3.5-5.1)
[2020-11-12] MEDS: Ipratropium/Albuterol Neb 3 ML IH SCH ×3 (03:49→11:33)
[2020-11-12] MEDS ORDERED: *HR* Enoxaparin 40 MG/0.4 ML SYRINGE SQ SCH (06:00)
[2020-11-12] MEDS: Budesonide/Formoterol 160/4.5 1 PUFF INH IH SCH (07:17)
[2020-11-12] MEDS ORDERED: Calcium Gluconate 1gm/50mL 1 GM/50 ML BAG IVPB ONE (07:38)
[2020-11-12] MEDS: Insulin LISPRO 300 UNITS/3 ML VIAL SUBQ SCH ×2 (07:54→11:02)
[2020-11-12] MEDS: ARIPiprazole 5 MG TABLET PO SCH (08:32)
[2020-11-12] MEDS: Isosorbide MONOnitrate (24 HR) 30 MG TAB.ER.24H PO SCH (08:32)
[2020-11-12] MEDS ORDERED: predniSONE 20 MG TABLET PO SCH (09:00)
[2020-11-12 10:32] VITALS: BP 147/90
== END 2020-11-12 14:29 | disposition home health service (06) ==
LOC: 2ANU 10:49 → EMEROOARM 10:49 → SUATTDRO 17:20 → 2ANU 18:52
PROVIDERS: ADMIT Internal Medicine; ATTEND Internal Medicine

== ENCOUNTER 2020-12-25 17:51 | Observation (INO) ==
[2020-12-25 20:46] LABS: Basophils % 0.4 %; Eosinophils # 0.3 K/mcL (0.0-0.6); Eosinophils % 3.2 %; Hematocrit 36.7 % (35.3-44.9); Hemoglobin 11.5 g/dL (11.5-15.4); Immature Granulocytes % 0.1 % (0-4); Mean Corpuscular HGB Conc 31.3 g/dL (31.6-35.5); Mean Corpuscular Volume 92.4 fL (83.0-100.0); Mean Platelet Volume 10.9 fL (9.4-12.4); Monocytes # 0.7 K/mcL (0.0-1.3); Monocytes % 7.5 %; Neutrophils # 5.1 K/mcL (1.6-8.9); Platelet Count 241 K/mcL (140-400); Red Blood Count 3.97 M/mcL (3.82-4.97); Red Cell Distribution Width 14.6 % (11.5-14.5); Segmented Neutrophils % 55.8 %; White Blood Count 9.1 K/mcL (4.3-11.1)
[2020-12-25 20:57] LABS: INR 1.1; Prothrombin Time 12.7 Seconds (9.4-12.1)
[2020-12-25 21:09] LABS: BUN/Creatinine Ratio 18 (6-26); Blood Urea Nitrogen 18 mg/dL (8-23); Calcium 8.5 mg/dL (8.6-10.3); Carbon Dioxide 28 mEq/L (23-29); Chloride 106 mEq/L (98-107); Glucose 104 mg/dL (70-105); Osmolality,Calculated 298 (280-300); Sodium 143 mEq/L (136-145); eGFR For African Americans > 60 (> 60); eGFR For Non-African Americans 54 (> 60)
[2020-12-25 21:10] LABS: Troponin I < 0.03 ng/mL (< 0.04)
[2020-12-25 22:35] LABS: Magnesium 1.3 mg/dL (1.6-2.6)
[2020-12-26] MEDS ORDERED: Naloxone 0.4 MG/ML INJ IVP PRN (00:30)
[2020-12-26] MEDS ORDERED: Melatonin 3 MG TABLET PO PRN (00:30)
[2020-12-26] MEDS ORDERED: Acetaminophen 325 MG TABLET PO PRN (00:30)
[2020-12-26] MEDS ORDERED: Ondansetron 4 MG/2 ML VIAL IVP PRN (00:30)
[2020-12-26] MEDS: hydrOXYzine pamoate 25 MG CAPSULE PO PRN ×2 (02:44→20:28)
[2020-12-26] MEDS ORDERED: Dextrose Gel 15 GM/37.5 ML TUBE PO PRN ×2 (03:39)
[2020-12-26] MEDS ORDERED: *HR* Dextrose 50 % in Water (Vial) 50 ML VIAL IVP PRN (03:39)
[2020-12-26] MEDS ORDERED: D5% in Water 1,000 ML IVC PRN (03:39)
[2020-12-26 05:14] LABS: Basophils # 0.1 K/mcL (0.0-0.2); Basophils % 0.6 %; Eosinophils # 0.3 K/mcL (0.0-0.6); Hematocrit 39.2 % (35.3-44.9); Hemoglobin 12.1 g/dL (11.5-15.4); Immature Granulocytes % 0.1 % (0-4); Lymphocytes % 35.3 %; Mean Corpuscular HGB Conc 30.9 g/dL (31.6-35.5); Mean Platelet Volume 11.9 fL (9.4-12.4); Monocytes # 0.8 K/mcL (0.0-1.3); Monocytes % 9.3 %; Neutrophils # 4.3 K/mcL (1.6-8.9); Platelet Count 193 K/mcL (140-400); Red Blood Count 4.17 M/mcL (3.82-4.97); Red Cell Distribution Width 14.6 % (11.5-14.5); Segmented Neutrophils % 50.7 %; White Blood Count 8.5 K/mcL (4.3-11.1)
[2020-12-26 05:43] LABS: Alanine Aminotransferase 10 Units/L (7-52); Albumin 3.6 g/dL (3.5-5.7); Albumin/Globulin Ratio 1.6 (1.1-2.2); Alkaline Phosphatase 48 Units/L (34-104); Aspartate Amino Transferase 17 Units/L (13-39); BUN/Creatinine Ratio 19 (6-26); Bilirubin,Total 0.4 mg/dL (0.3-1.0); Blood Urea Nitrogen 17 mg/dL (8-23); Calcium 8.6 mg/dL (8.6-10.3); Carbon Dioxide 27 mEq/L (23-29); Chloride 108 mEq/L (98-107); Chol/HDL Ratio 4.2 (0-4.9); Cholesterol 161 mg/dL (< 200); Globulin 2.3 g/dL (2.4-3.5); Glucose 100 mg/dL (70-105); HDL Cholesterol 38 mg/dL (40-59); LDL Cholesterol,Calculated 95 mg/dL (< 100); Magnesium 1.9 mg/dL (1.6-2.6); Osmolality,Calculated 298 (280-300); Phosphorous 2.9 mg/dL (2.7-4.5); Potassium 3.3 mEq/L (3.5-5.1); Sodium 143 mEq/L (136-145); Total Protein 5.9 g/dL (6.4-8.9); Triglycerides 139 mg/dL (< 150); Troponin I < 0.03 ng/mL (< 0.04); eGFR For African Americans > 60 (> 60); eGFR For Non-African Americans 60 (> 60)
[2020-12-26] MEDS: Insulin LISPRO 300 UNITS/3 ML VIAL SUBQ SCH ×4 (07:24→23:04)
[2020-12-26] MEDS: Aspirin Enteric Coated 81 MG Tablet PO SCH (14:11)
[2020-12-26] MEDS ORDERED: Nitroglycerin 0.4 MG TAB.SUBL SL PRN (17:56)
[2020-12-26] MEDS: Lactobacillus 1 EACH CAP.SPRINK PO SCH (20:28)
[2020-12-26] MEDS: Budesonide/Formoterol 160/4.5 1 PUFF INH IH SCH (22:00)
[2020-12-27 05:47] LABS: Basophils % 0.5 %; Eosinophils # 0.3 K/mcL (0.0-0.6); Eosinophils % 4.1 %; Hematocrit 38.8 % (35.3-44.9); Hemoglobin 11.7 g/dL (11.5-15.4); Immature Granulocytes % 0.1 % (0-4); Lymphocytes # 3.1 K/mcL (0.6-4.6); Lymphocytes % 38.7 %; Mean Corpuscular HGB Conc 30.2 g/dL (31.6-35.5); Mean Corpuscular Hemoglobin 28.5 pg (28.0-33.3); Mean Corpuscular Volume 94.6 fL (83.0-100.0); Mean Platelet Volume 11.1 fL (9.4-12.4); Monocytes # 0.7 K/mcL (0.0-1.3); Monocytes % 9.4 %; Neutrophils # 3.7 K/mcL (1.6-8.9); Platelet Count 213 K/mcL (140-400); Segmented Neutrophils % 47.2 %; White Blood Count 7.9 K/mcL (4.3-11.1)
[2020-12-27 06:10] LABS: BUN/Creatinine Ratio 22 (6-26); Blood Urea Nitrogen 19 mg/dL (8-23); Calcium 8.4 mg/dL (8.6-10.3); Carbon Dioxide 29 mEq/L (23-29); Chloride 109 mEq/L (98-107); Glucose 89 mg/dL (70-105); Osmolality,Calculated 298 (280-300); Sodium 143 mEq/L (136-145); eGFR For African Americans > 60 (> 60); eGFR For Non-African Americans > 60 (> 60)
[2020-12-27 07:41] VITALS: BP 165/85
[2020-12-27] MEDS: Insulin LISPRO 300 UNITS/3 ML VIAL SUBQ SCH (07:47)
[2020-12-27] MEDS: Aspirin Enteric Coated 81 MG Tablet PO SCH (07:48)
[2020-12-27] MEDS: Lactobacillus 1 EACH CAP.SPRINK PO SCH (07:48)
[2020-12-27] MEDS: Budesonide/Formoterol 160/4.5 1 PUFF INH IH SCH (08:20)
[2020-12-27] MEDS ORDERED: Isosorbide MONOnitrate (24 HR) 30 MG TAB.ER.24H PO SCH (09:00)
[2020-12-27] MEDS ORDERED: Multivit/Ca/Min/Fe/FA 1 TAB TABLET PO SCH (09:00)
[2020-12-27] MEDS ORDERED: ARIPiprazole 5 MG TABLET PO SCH (09:00)
[2020-12-28] MEDS ORDERED: calcitrioL 0.25 MCG CAPSULE PO SCH (17:56)
== END 2020-12-27 10:59 | disposition home or self-care (01) ==
LOC: 3BNU 17:51 → EMEROOARM 17:51 → SUATTDRO 12-26 00:18 → 3BNU 12-26 01:00
PROVIDERS: ADMIT Family Medicine; ATTEND Internal Medicine

== ENCOUNTER 2022-06-17 14:34 | Observation (INO) ==
[2022-06-17] MEDS ORDERED: Morphine Sulfate 2 MG/ML SYRINGE IVP ONE ×2 (15:46→19:42)
[2022-06-17] MEDS ORDERED: Ondansetron 4 MG/2 ML VIAL IVP ONE (15:47)
[2022-06-17 16:17] LABS: Basophils # 0.1 K/mcL (0.0-0.2); Basophils % 0.5 %; Eosinophils # 0.1 K/mcL (0.0-0.6); Eosinophils % 0.5 %; Hematocrit 37.7 % (35.3-44.9); Hemoglobin 11.8 g/dL (11.5-15.4); Immature Granulocytes % 1.2 % (0-4); Lymphocytes % 17.9 %; Mean Corpuscular HGB Conc 31.3 g/dL (31.6-35.5); Mean Corpuscular Hemoglobin 29.9 pg (28.0-33.3); Mean Corpuscular Volume 95.7 fL (83.0-100.0); Mean Platelet Volume 10.1 fL (9.4-12.4); Monocytes # 0.7 K/mcL (0.0-1.3); Monocytes % 6.7 %; Neutrophils # 8.1 K/mcL (1.6-8.9); Platelet Count 293 K/mcL (140-400); Red Blood Count 3.94 M/mcL (3.82-4.97); Red Cell Distribution Width 15.2 % (11.5-14.5); Segmented Neutrophils % 73.2 %; White Blood Count 11.1 K/mcL (4.3-11.1)
[2022-06-17 16:27] LABS: INR 1.1; Prothrombin Time 12.2 Seconds (9.4-12.1)
[2022-06-17 16:29] LABS: Activated Partial Thrombo Time 32.5 Seconds (26.0-36.0)
[2022-06-17] MEDS ORDERED: Ondansetron 4 MG/2 ML VIAL IVP PRN (20:37)
[2022-06-17] MEDS ORDERED: Acetaminophen 325 MG TABLET PO PRN (20:37)
[2022-06-17] MEDS ORDERED: Melatonin 3 MG TABLET PO PRN (20:37)
[2022-06-17] MEDS ORDERED: Naloxone 0.4 MG/ML INJ IVP PRN (20:37)
[2022-06-17] MEDS ORDERED: D5% in Water 1,000 ML IVC PRN (20:43)
[2022-06-17] MEDS ORDERED: Dextrose Gel 15 GM/37.5 ML TUBE PO PRN ×2 (20:43)
[2022-06-17] MEDS ORDERED: *HR* Dextrose 50 % in Water (Syg) 50 ML SYRINGE IVP PRN (20:43)
[2022-06-17] MEDS ORDERED: 0.9 % Sodium Chloride 1,000 ML IVC SCH (20:45)
[2022-06-17 21:33] LABS: Thyroid Stimulating Hormone 0.605 mcIU/mL (0.340-5.600)
[2022-06-17] MEDS ORDERED: Nitroglycerin 0.4 MG TAB.SUBL SL PRN (22:57)
[2022-06-17] MEDS ORDERED: rOPINIRole 1 MG TABLET PO SCH (23:00)
[2022-06-18 02:41] LABS: Hematocrit 37.8 % (35.3-44.9); Hemoglobin 11.7 g/dL (11.5-15.4); Mean Corpuscular Hemoglobin 29.8 pg (28.0-33.3); Mean Corpuscular Volume 96.2 fL (83.0-100.0); Mean Platelet Volume 10.1 fL (9.4-12.4); Platelet Count 288 K/mcL (140-400); Red Blood Count 3.93 M/mcL (3.82-4.97); Red Cell Distribution Width 15.2 % (11.5-14.5); White Blood Count 11.4 K/mcL (4.3-11.1)
[2022-06-18 02:59] LABS: Calcium 8.5 mg/dL (8.6-10.3); Potassium 3.7 mEq/L (3.5-5.1)
[2022-06-18] MEDS: Ipratropium/Albuterol Neb 3 ML IH SCH ×3 (04:24→15:50)
[2022-06-18] MEDS: Insulin LISPRO 300 UNITS/3 ML VIAL SUBQ SCH ×2 (08:19→11:41)
[2022-06-18] MEDS ORDERED: Budesonide/Formoterol 160/4.5 1 PUFF INH IH SCH (10:00)
[2022-06-18 10:19] LABS: Bilirubin,Urine Negative (Negative); Blood,Urine Negative (Negative); Clarity,Urine Clear (Clear); Color,Urine Yellow (Yellow); Glucose,Urine (UA) Normal (Normal); Ketones,Urine Negative (Negative); Leukocyte Esterase,Urine Negative (Negative); Nitrite,Urine Negative (Negative); PH,Urine 5.5 pH Units (5.0-8.0); Protein,Urine Trace mg/dL (Neg-Trace); Specific Gravity,Urine 1.028 (1.010-1.025); Urobilinogen,Urine Normal (Normal)
[2022-06-18] MEDS ORDERED: *HR* Heparin 5,000 UNIT/ML VIAL SQ SCH (14:00)
[2022-06-18 15:41] VITALS: BP 108/66; PULSE 71; TEMP 98.3
[2022-06-18 15:56] VITALS: O2SAT 97
[2022-06-19] MEDS ORDERED: ISOSORBIDE MONONITRATE 20 MG PO SCH (09:00)
[2022-06-20] MEDS ORDERED: Cyanocobalamin (B-12) 1,000 MCG TABLET PO SCH (09:00)
== END 2022-06-18 17:00 | disposition left against medical advice (07) ==
LOC: 3BNU 14:34 → EMEROOARM 14:34 → 3BNU 21:33
PROVIDERS: ADMIT Internal Medicine; ATTEND Internal Medicine